=== PATIENT | female | born 1985 | race Caucasian/White ===

== ENCOUNTER 2019-03-14 16:49 | Emergency (ER) | payer OTHER, MEDICAID, SELFPAY ==
[2019-03-14] VITALS (10 sets, daily range): BP systolic 111–165; BP diastolic 71–116; PULSE 78–121; RESP 17–24; O2SAT 91–99
--- NOTE | 2019-03-14 17:07 | ED_ITS ---
HPI - Alcohol <Cynthia Arce PA-C - Last Filed: 03/14/19 21:02> General Chief Complaint: Toxicology Problem Stated Complaint: wants detox Time Seen by Provider: 03/14/19 17:00 Source: patient Mode of arrival: Ambulatory Limitations: no limitations History of Present Illness HPI narrative: This 34-year-old female comes to ED requesting referral for detox. She went to a treatment center or the crisis center today and was told she needed evaluation 1st, so came here. She states she has been an alcoholic since she was 10 years old. She drinks a L of vodka daily. Her last drink was in the parking lot here, she has been drinking as usual today. She denies any other drug use. She states that she has significant anxiety, does not take any daily medication for this, has occasionally taken Xanax in the past. She does have prescriptions for gabapentin and BuSpar that she is not using regularly. She states that she was told by her counselor she could possibly be bipolar at some point in the past. She states that currently is she is feeling as usual. She has not had any recent illness, no cough or respiratory symptoms. She denies any bowel or bladder symptoms. She has not had any chest pain or breathing difficulties. She states that she is not feeling shaky or nauseated. She denies any headache, hallucinations or other new complaints on systems review. She feels like she needs to be in an inpatient facility because at home she tends to drink. She has been given prescription for clonidine in the past to try to detox at home, has a partial bottle with her but this was not effective. She denies any suicidal ideation Related Data Home Medications Medication Instructions Recorded Confirmed buspirone 15 mg PO BID PRN 03/14/19 03/14/19 clonidine HCl 0.1 mg PO DAILY 03/14/19 03/14/19 gabapentin 300 mg PO TID 03/14/19 03/14/19 hydroxyzine HCl 50 mg PO TID PRN 03/14/19 03/14/19 Previous Rx's Medication Instructions Recorded lorazepam [Ativan] See Rx Instructions .ROUTE 03/15/19 .COMPLEX PRN #10 tab Allergies Allergy/AdvReac Type Severity Reaction Status Date / Time Penicillins Allergy Unknown Verified 03/14/19 18:03 Review of Systems <Cynthia Arce PA-C - Last Filed: 03/14/19 21:02> Review of Systems ROS Unobtainable: All systems reviewed & are unremarkable except as noted in HPI and below Patient History <Cynthia Arce PA-C - Last Filed: 03/14/19 21:02> Medical History (Updated 03/15/19 @ 04:29 by Jackie Alcaraz DO) Alcoholism /alcohol abuse (Chronic) Anxiety (Chronic) Surgical History (Updated 03/14/19 @ 17:18 by Cynthia Arce PA-C) History of fusion of spine for scoliosis (Resolved) Social History (Updated 03/14/19 @ 17:18 by Cynthia Arce PA-C) Smoking Status: Never smoker substance use type: does not use Smoking Status: Never smoker alcohol intake frequency: 3 or more drinks per day Alcohol type: hard liquor Exam <Cynthia Arce PA-C - Last Filed: 03/14/19 21:02> Narrative Exam Narrative: GENERAL APPEARANCE: Patient sitting comfortably, in no distress. HEENT: PERRL, EOMI, no scleral icterus NECK: Supple LUNGS: Clear to auscultation bilaterally. HEART: Rate and rhythm regular, normal S1 and S2, no S3 or S4. ABDOMEN: Soft, nontender, nondistended, bowel sounds present x 4 quadrants, no masses palpable, no hepatosplenomegaly. EXTREMITIES: No edema, no cyanosis DERMATOLOGIC: No jaundice or exanthem NEUROLOGIC: Alert and oriented with normal speech, gait and coordination. No tremor. PSYCH: Intermittently tearful and appears mildly anxious, not agitated Initial Vital Signs Initial Vital Signs: Vital Signs Pulse Rate 114 H 03/14/19 17:00 Respiratory Rate 22 03/14/19 17:00 Blood Pressure 165/104 H 03/14/19 17:00 Pulse Oximetry 99 03/14/19 17:00 <Jackie Alcaraz DO - Last Filed: 03/15/19 18:21> Initial Vital Signs Initial Vital Signs: Vital Signs Pulse Rate 114 H 03/14/19 17:00 Respiratory Rate 22 03/14/19 17:00 Blood Pressure 165/104 H 03/14/19 17:00 Pulse Oximetry 99 03/14/19 17:00 <Peter Marroquin MD - Last Filed: 03/15/19 09:35> Initial Vital Signs Initial Vital Signs: Vital Signs Pulse Rate 114 H 03/14/19 17:00 Respiratory Rate 22 03/14/19 17:00 Blood Pressure 165/104 H 03/14/19 17:00 Pulse Oximetry 99 03/14/19 17:00 Course <Cynthia Arce PA-C - Last Filed: 03/14/19 21:02> Course Additional Information: During her stay patient has repeatedly expressed wish to go to rehab. She does not want to return home as she is sure that she will resume drinking if she returns home. She feels that she needs to be in an inpatient setting. Social work has found beds available in the morning, and her alcohol level should be to an acceptable level for admission by then. She elects to remain here in the ED tonight for monitoring plan to enter rehab in the morning. She has been eating and drinking fluids while here, sleeping part of the time and appears comfortable. No evidence of onset of DTs at this time. Plan reviewed with Dr. Alcaraz who will continue care Orders Ordered: Discontinued Medications Magnesium Sulfate 2 gm/ Folic Acid 1 mg/ Thiamine HCl 100 mg / Multivitamins 10 ml/ Sodium Chloride 1,015.2 mls @ 125 mls/hr IV NOW ONE Stop: 03/15/19 02:01 Last Infusion: 03/15/19 06:22 Dose: 0 mls/hr Documented by: Admin: 03/14/19 18:18 Dose: 125 mls/hr Documented by: BALDO Lorazepam (Ativan) 1 mg PO NOW ONE Stop: 03/14/19 17:55 Last Admin: 03/14/19 18:04 Dose: 1 mg Documented by: BALDO Lorazepam (Ativan) 1 mg IV NOW ONE Stop: 03/14/19 21:23 Last Admin: 03/14/19 21:29 Dose: 1 mg Documented by: JACQUELINE Lorazepam (Ativan) 2 mg PO NOW ONE Stop: 03/15/19 03:56 Last Admin: 03/15/19 03:59 Dose: 2 mg Documented by: STACEY Lorazepam (Ativan) 1 mg PO NOW ONE Stop: 03/15/19 09:24 Last Admin: 03/15/19 09:39 Dose: 1 mg Documented by: KSCHERE Vital Signs Vital signs: Vital Signs - 8 hr 03/15/19 02:01 03/15/19 03:09 03/15/19 03:50 Pulse Rate 97 H 105 H 90 Respiratory Rate 19 17 15 Blood Pressure [Left Arm] 114/68 128/74 96/58 L Pulse Oximetry 92 96 99 03/15/19 05:21 03/15/19 07:00 03/15/19 08:43 Pulse Rate 83 95 H 97 H Respiratory Rate 18 18 23 Blood Pressure [Left Arm] 97/57 L 104/60 114/75 Pulse Oximetry 94 100 99 03/15/19 09:26 Pulse Rate 95 H Respiratory Rate 15 Blood Pressure [Left Arm] Pulse Oximetry 98 <Jackie Alcaraz DO - Last Filed: 03/15/19 18:21> Orders Ordered: Discontinued Medications Magnesium Sulfate 2 gm/ Folic Acid 1 mg/ Thiamine HCl 100 mg / Multivitamins 10 ml/ Sodium Chloride 1,015.2 mls @ 125 mls/hr IV NOW ONE Stop: 03/15/19 02:01 Last Infusion: 03/15/19 06:22 Dose: 0 mls/hr Documented by: Admin: 03/14/19 18:18 Dose: 125 mls/hr Documented by: BALDO Lorazepam (Ativan) 1 mg PO NOW ONE Stop: 03/14/19 17:55 Last Admin: 03/14/19 18:04 Dose: 1 mg Documented by: BALDO Lorazepam (Ativan) 1 mg IV NOW ONE Stop: 03/14/19 21:23 Last Admin: 03/14/19 21:29 Dose: 1 mg Documented by: JACQUELINE Lorazepam (Ativan) 2 mg PO NOW ONE Stop: 03/15/19 03:56 Last Admin: 03/15/19 03:59 Dose: 2 mg Documented by: STACEY Lorazepam (Ativan) 1 mg PO NOW ONE Stop: 03/15/19 09:24 Last Admin: 03/15/19 09:39 Dose: 1 mg Documented by: ELLIE Vital Signs Vital signs: Vital Signs - 8 hr 03/15/19 02:01 03/15/19 03:09 03/15/19 03:50 Pulse Rate 97 H 105 H 90 Respiratory Rate 19 17 15 Blood Pressure [Left Arm] 114/68 128/74 96/58 L Pulse Oximetry 92 96 99 12/07/19 05:21 03/15/19 07:00 03/15/19 08:43 Pulse Rate 83 95 H 97 H Respiratory Rate 18 18 23 Blood Pressure [Left Arm] 97/57 L 104/60 114/75 Pulse Oximetry 94 100 99 03/15/19 09:26 Pulse Rate 95 H Respiratory Rate 15 Blood Pressure [Left Arm] Pulse Oximetry 98 <Peter Marroquin MD - Last Filed: 03/15/19 09:35> Course Course Narrative: Addendum by Peter Marroquin MD at 9:34 a.m. on 03/15/2019 I assumed care of this patient from Dr. Alcaraz, briefly 34-year-old female pre senting with alcohol withdrawal requesting detox. She was accepted for detox at [facility] I re-evaluated her vital signs are stable she is feeling well and she would like to be transferred there in a private vehicle, she appears stable to do so. I did write an Ativan taper as requested by the detox facility. I reviewed return precautions with the patient, and reviewed that she should go directly to the detox center which she is in agreement with. She was discharged in the care of her partner directly to the detox center. Orders Ordered: Discontinued Medications Magnesium Sulfate 2 gm/ Folic Acid 1 mg/ Thiamine HCl 100 mg / Multivitamins 10 ml/ Sodium Chloride 1,015.2 mls @ 125 mls/hr IV NOW ONE Stop: 03/15/19 02:01 Last Infusion: 03/15/19 06:22 Dose: 0 mls/hr Documented by: Admin: 03/14/19 18:18 Dose: 125 mls/hr Documented by: BALDO Lorazepam (Ativan) 1 mg PO NOW ONE Stop: 03/14/19 17:55 Last Admin: 03/14/19 18:04 Dose: 1 mg Documented by: BALDO Lorazepam (Ativan) 1 mg IV NOW ONE Stop: 03/14/19 21:23 Last Admin: 03/14/19 21:29 Dose: 1 mg Documented by: JACQUELINE Lorazepam (Ativan) 2 mg PO NOW ONE Stop: 03/15/19 03:56 Last Admin: 03/15/19 03:59 Dose: 2 mg Documented by: STACEY Lorazepam (Ativan) 1 mg PO NOW ONE Stop: 03/15/19 09:24 Last Admin: 03/15/19 09:39 Dose: 1 mg Documented by: ELLIE Vital Signs Vital signs: Vital Signs - 8 hr 03/15/19 02:01 03/15/19 03:09 03/15/19 03:50 Pulse Rate 97 H 105 H 90 Respiratory Rate 19 17 15 Blood Pressure [Left Arm] 114/68 128/74 96/58 L Pulse Oximetry 92 96 99 03/15/19 05:21 03/15/19 07:00 03/15/19 08:43 Pulse Rate 83 95 H 97 H Respiratory Rate 18 18 23 Blood Pressure [Left Arm] 97/57 L 104/60 114/75 Pulse Oximetry 94 100 99 03/15/19 09:26 Pulse Rate 95 H Respiratory Rate 15 Blood Pressure [Left Arm] Pulse Oximetry 98 MDM - Alcohol <Cynthia Arce PA-C - Last Filed: 03/14/19 21:02> Lab Data Result diagrams: 03/14/19 17:43 03/14/19 17:43 Labs: Lab Results 03/14/19 03/14/19 03/14/19 Range/Units 17:36 17:43 17:43 WBC 6.2 (4.5-11.0) X10^3/uL RBC 4.58 (4.0-5.2) X10^6/uL Hgb 14.7 (12.0-16.0) g/dL Hct 43.3 (36-46) % MCV 94.5 (80-100) fL MCH 32.1 (26-34) PG MCHC 34.0 (30-36) % RDW 14.3 (11.6-14.8) % Plt Count 248 (150-400) X10^3/uL Neut % (Auto) 57.3 (50-75) % Lymph % (Auto) 31.6 (25-40) % [place] % (Auto) 7.0 (3-14) % Eos % (Auto) 1.5 L (2-4) % Baso % (Auto) 2.6 H (0-2) % Neut # (Auto) 3500 (9305-9598) /uL Lymph # (Auto) 1900 (3432-0048) /uL [place] # (Auto) 400 (0-900) /uL Eos # (Auto) 100 (0-450) /uL Baso # (Auto) 200 H (0-100) /uL Sodium 148 H (137-145) mmol/L Potassium 4.2 (3.4-5.1) mmol/L Chloride 106 (98-107) mmol/L Carbon Dioxide 25 (22-32) mmol/L BUN 11 (7-17) mg/dL Creatinine 0.60 (0.52-1.04) mg/dL Estimated GFR > 60.0 (>60) mL/min BUN/Creatinine Ratio 18.3 (6-22) Glucose 95 (70-100) mg/dL Calcium 9.1 (8.4-10.2) mg/dL Magnesium 2.0 (1.6-2.3) mg/dL Total Bilirubin 0.8 (0.2-1.3) mg/dL AST 160 H (14-36) IU/L ALT 97 H (<35) IU/L Alkaline Phosphatase 93 (38-126) U/L Total Protein 8.6 H (6.3-8.2) g/dL Albumin 5.1 H (3.5-5.0) g/dL Globulin 3.5 (1.7-4.1) g/dL Albumin/Globulin Ratio 1.5 (1.0-2.8) Lipase 214 (23-300) U/L TSH (0.47-4.68) uIU/mL U Morph 300 ng/mL cutoff Negative (Negative) Ur Oxycodone Screen Negative (Negative) Urine Methadone Screen Negative (Negative) Ur Barbiturates Screen Negative (Negative) U Tricyclic Antidepress Negative (Negative) Ur Phencyclidine Scrn Negative (Negative) Ur Amphetamines Screen Negative (Negative) U Methamphetamines Scrn Negative (Negative) Ur MDMA Scrn (Ecstasy) Negative (Negative) U Benzodiazepines Scrn Negative (Negative) Urine Cocaine Screen Negative (Negative) U Marijuana (THC) Screen Negative (Negative) Ethyl Alcohol 408 H* ( - 10) mg/dL 03/14/19 03/15/19 Range/Units 17:43 03:08 WBC (4.5-11.0) X10^3/uL RBC (4.0-5.2) X10^6/uL Hgb (12.0-16.0) g/dL Hct (36-46) % MCV (80-100) fL MCH (26-34) PG MCHC (30-36) % RDW (11.6-14.8) % Plt Count (150-400) X10^3/uL Neut % (Auto) (50-75) % Lymph % (Auto) (25-40) % [place] % (Auto) (3-14) % Eos % (Auto) (2-4) % Baso % (Auto) (0-2) % Neut # (Auto) (1762-3890) /uL Lymph # (Auto) (7418-1777) /uL [place] # (Auto) (0-900) /uL Eos # (Auto) (0-450) /uL Baso # (Auto) (0-100) /uL Sodium (137-145) mmol/L Potassium (3.4-5.1) mmol/L Chloride (98-107) mmol/L Carbon Dioxide (22-32) mmol/L BUN (7-17) mg/dL Creatinine (0.52-1.04) mg/dL Estimated GFR (>60) mL/min BUN/Creatinine Ratio (6-22) Glucose (70-100) mg/dL Calcium (8.4-10.2) mg/dL Magnesium (1.6-2.3) mg/dL Total Bilirubin (0.2-1.3) mg/dL AST (14-36) IU/L ALT (<35) IU/L Alkaline Phosphatase (38-126) U/L Total Protein (6.3-8.2) g/dL Albumin (3.5-5.0) g/dL Globulin (1.7-4.1) g/dL Albumin/Globulin Ratio (1.0-2.8) Lipase (23-300) U/L TSH 0.55 (0.47-4.68) uIU/mL U Morph 300 ng/mL cutoff (Negative) Ur Oxycodone Screen (Negative) Urine Methadone Screen (Negative) Ur Barbiturates Screen (Negative) U Tricyclic Antidepress (Negative) Ur Phencyclidine Scrn (Negative) Ur Amphetamines Screen (Negative) U Methamphetamines Scrn (Negative) Ur MDMA Scrn (Ecstasy) (Negative) U Benzodiazepines Scrn (Negative) Urine Cocaine Screen (Negative) U Marijuana (THC) Screen (Negative) Ethyl Alcohol 115 H ( - 10) mg/dL Point of Care Testing Test Results Negative Urine Dip Bedside Urine Glucose Negative Bedside Urine Bilirubin - Negative Bedside Urine Ketone - Negative Urine Specific [place] 1.015 Bedside Urine Occult Blood +/- Bedside Urine pH 6.0 Bedside Urine Protein - Negative Bedside Urine Urobilinogen - Negative Bedside Urine Nitrite - Negative Bedside Urine Leukocytes - Negative Esterase <Jackie Alcaraz, DO - Last Filed: 03/15/19 18:21> Lab Data Attestation: I reviewed the patient's lab results. Labs: Lab Results 03/14/19 03/14/19 03/14/19 Range/Units 17:36 17:43 17:43 WBC 6.2 (4.5-11.0) X10^3/uL RBC 4.58 (4.0-5.2) X10^6/uL Hgb 14.7 (12.0-16.0) g/dL Hct 43.3 (36-46) % MCV 94.5 (80-100) fL MCH 32.1 (26-34) PG MCHC 34.0 (30-36) % RDW 14.3 (11.6-14.8) % Plt Count 248 (150-400) X10^3/uL Neut % (Auto) 57.3 (50-75) % Lymph % (Auto) 31.6 (25-40) % [place] % (Auto) 7.0 (3-14) % Eos % (Auto) 1.5 L (2-4) % Baso % (Auto) 2.6 H (0-2) % Neut # (Auto) 3500 (0980-2781) /uL Lymph # (Auto) 1900 (8874-5324) /uL [place] # (Auto) 400 (0-900) /uL Eos # (Auto) 100 (0-450) /uL Baso # (Auto) 200 H (0-100) /uL Sodium 148 H (137-145) mmol/L Potassium 4.2 (3.4-5.1) mmol/L Chloride 106 (98-107) mmol/L Carbon Dioxide 25 (22-32) mmol/L BUN 11 (7-17) mg/dL Creatinine 0.60 (0.52-1.04) mg/dL Estimated GFR > 60.0 (>60) mL/min BUN/Creatinine Ratio 18.3 (6-22) Glucose 95 (70-100) mg/dL Calcium 9.1 (8.4-10.2) mg/dL Magnesium 2.0 (1.6-2.3) mg/dL Total Bilirubin 0.8 (0.2-1.3) mg/dL AST 160 H (14-36) IU/L ALT 97 H (<35) IU/L Alkaline Phosphatase 93 (38-126) U/L Total Protein 8.6 H (6.3-8.2) g/dL Albumin 5.1 H (3.5-5.0) g/dL Globulin 3.5 (1.7-4.1) g/dL Albumin/Globulin Ratio 1.5 (1.0-2.8) Lipase 214 (23-300) U/L TSH (0.47-4.68) uIU/mL U Morph 300 ng/mL cutoff Negative (Negative) Ur Oxycodone Screen Negative (Negative) Urine Methadone Screen Negative (Negative) Ur Barbiturates Screen Negative (Negative) U Tricyclic Antidepress Negative (Negative) Ur Phencyclidine Scrn Negative (Negative) Ur Amphetamines Screen Negative (Negative) U Methamphetamines Scrn Negative (Negative) Ur MDMA Scrn (Ecstasy) Negative (Negative) U Benzodiazepines Scrn Negative (Negative) Urine Cocaine Screen Negative (Negative) U Marijuana (THC) Screen Negative (Negative) Ethyl Alcohol 408 H* ( - 10) mg/dL 03/14/19 03/15/19 Range/Units 17:43 03:08 WBC (4.5-11.0) X10^3/uL RBC (4.0-5.2) X10^6/uL Hgb (12.0-16.0) g/dL Hct (36-46) % MCV (80-100) fL MCH (26-34) PG MCHC (30-36) % RDW (11.6-14.8) % Plt Count (150-400) X10^3/uL Neut % (Auto) (50-75) % Lymph % (Auto) (25-40) % [place] % (Auto) (3-14) % Eos % (Auto) (2-4) % Baso % (Auto) (0-2) % Neut # (Auto) (9339-0890) /uL Lymph # (Auto) (2651-1557) /uL [place] # (Auto) (0-900) /uL Eos # (Auto) (0-450) /uL Baso # (Auto) (0-100) /uL Sodium (137-145) mmol/L Potassium (3.4-5.1) mmol/L Chloride (98-107) mmol/L Carbon Dioxide (22-32) mmol/L BUN (7-17) mg/dL Creatinine (0.52-1.04) mg/dL Estimated GFR (>60) mL/min BUN/Creatinine Ratio (6-22) Glucose (70-100) mg/dL Calcium (8.4-10.2) mg/dL Magnesium (1.6-2.3) mg/dL Total Bilirubin (0.2-1.3) mg/dL AST (14-36) IU/L ALT (<35) IU/L Alkaline Phosphatase (38-126) U/L Total Protein (6.3-8.2) g/dL Albumin (3.5-5.0) g/dL Globulin (1.7-4.1) g/dL Albumin/Globulin Ratio (1.0-2.8) Lipase (23-300) U/L TSH 0.55 (0.47-4.68) uIU/mL U Morph 300 ng/mL cutoff (Negative) Ur Oxycodone Screen (Negative) Urine Methadone Screen (Negative) Ur Barbiturates Screen (Negative) U Tricyclic Antidepress (Negative) Ur Phencyclidine Scrn (Negative) Ur Amphetamines Screen (Negative) U Methamphetamines Scrn (Negative) Ur MDMA Scrn (Ecstasy) (Negative) U Benzodiazepines Scrn (Negative) Urine Cocaine Screen (Negative) U Marijuana (THC) Screen (Negative) Ethyl Alcohol 115 H ( - 10) mg/dL Point of Care Testing Test Results Negative Urine Dip Bedside Urine Glucose Negative Bedside Urine Bilirubin - Negative Bedside Urine Ketone - Negative Urine Specific [place] 1.015 Bedside Urine Occult Blood +/- Bedside Urine pH 6.0 Bedside Urine Protein - Negative Bedside Urine Urobilinogen - Negative Bedside Urine Nitrite - Negative Bedside Urine Leukocytes - Negative Esterase MDM Narrative Medical decision making narrative: Patient continues to express interest in detox, no beds are available until after 730 in the morning although detox in [place] and [place] stated they both should have at least 1 bed available after 7:30 a.m.. Patient's EtOH has to be less than 225. Patient was offered discharge and call in the morning but she asked if she can spend the night in order to maintain medical clearance. Overnight heart rate has occasionally been up to the 90s. She has had Ativan IV and switched to p.o. meds, patient states her DTs are typically tremors, nausea and vomiting, she denies any history of hallucinations or seizures. She did take her home trazodone for sleep. Patient is aware that if there are no beds available this morning that she will be discharged home but given contact information for her to continue to tap contact detox centers. Patient CIWA 4 @ 0630 and was 12 early in her stay. Patient was signed out to Dr. Marroquin. <Peter Marroquin MD - Last Filed: 03/15/19 09:35> Lab Data Labs: Lab Results 03/14/19 03/14/19 03/14/19 Range/Units 17:36 17:43 17:43 WBC 6.2 (4.5-11.0) X10^3/uL RBC 4.58 (4.0-5.2) X10^6/uL Hgb 14.7 (12.0-16.0) g/dL Hct 43.3 (36-46) % MCV 94.5 (80-100) fL MCH 32.1 (26-34) PG MCHC 34.0 (30-36) % RDW 14.3 (11.6-14.8) % Plt Count 248 (150-400) X10^3/uL Neut % (Auto) 57.3 (50-75) % Lymph % (Auto) 31.6 (25-40) % [place] % (Auto) 7.0 (3-14) % Eos % (Auto) 1.5 L (2-4) % Baso % (Auto) 2.6 H (0-2) % Neut # (Auto) 3500 (2253-8262) /uL Lymph # (Auto) 1900 (9359-9789) /uL [place] # (Auto) 400 (0-900) /uL Eos # (Auto) 100 (0-450) /uL Baso # (Auto) 200 H (0-100) /uL Sodium 148 H (137-145) mmol/L Potassium 4.2 (3.4-5.1) mmol/L Chloride 106 (98-107) mmol/L Carbon Dioxide 25 (22-32) mmol/L BUN 11 (7-17) mg/dL Creatinine 0.60 (0.52-1.04) mg/dL Estimated GFR > 60.0 (>60) mL/min BUN/Creatinine Ratio 18.3 (6-22) Glucose 95 (70-100) mg/dL Calcium 9.1 (8.4-10.2) mg/dL Magnesium 2.0 (1.6-2.3) mg/dL Total Bilirubin 0.8 (0.2-1.3) mg/dL AST 160 H (14-36) IU/L ALT 97 H (<35) IU/L Alkaline Phosphatase 93 (38-126) U/L Total Protein 8.6 H (6.3-8.2) g/dL Albumin 5.1 H (3.5-5.0) g/dL Globulin 3.5 (1.7-4.1) g/dL Albumin/Globulin Ratio 1.5 (1.0-2.8) Lipase 214 (23-300) U/L TSH (0.47-4.68) uIU/mL U Morph 300 ng/mL cutoff Negative (Negative) Ur Oxycodone Screen Negative (Negative) Urine Methadone Screen Negative (Negative) Ur Barbiturates Screen Negative (Negative) U Tricyclic Antidepress Negative (Negative) Ur Phencyclidine Scrn Negative (Negative) Ur Amphetamines Screen Negative (Negative) U Methamphetamines Scrn Negative (Negative) Ur MDMA Scrn (Ecstasy) Negative (Negative) U Benzodiazepines Scrn Negative (Negative) Urine Cocaine Screen Negative (Negative) U Marijuana (THC) Screen Negative (Negative) Ethyl Alcohol 408 H* ( - 10) mg/dL 03/14/19 03/15/19 Range/Units 17:43 03:08 WBC (4.5-11.0) X10^3/uL RBC (4.0-5.2) X10^6/uL Hgb (12.0-16.0) g/dL Hct (36-46) % MCV (80-100) fL MCH (26-34) PG MCHC (30-36) % RDW (11.6-14.8) % Plt Count (150-400) X10^3/uL Neut % (Auto) (50-75) % Lymph % (Auto) (25-40) % [place] % (Auto) (3-14) % Eos % (Auto) (2-4) % Baso % (Auto) (0-2) % Neut # (Auto) (4522-3400) /uL Lymph # (Auto) (1701-7572) /uL [place] # (Auto) (0-900) /uL Eos # (Auto) (0-450) /uL Baso # (Auto) (0-100) /uL Sodium (137-145) mmol/L Potassium (3.4-5.1) mmol/L Chloride (98-107) mmol/L Carbon Dioxide (22-32) mmol/L BUN (7-17) mg/dL Creatinine (0.52-1.04) mg/dL Estimated GFR (>60) mL/min BUN/Creatinine Ratio (6-22) Glucose (70-100) mg/dL Calcium (8.4-10.2) mg/dL Magnesium (1.6-2.3) mg/dL Total Bilirubin (0.2-1.3) mg/dL AST (14-36) IU/L ALT (<35) IU/L Alkaline Phosphatase (38-126) U/L Total Protein (6.3-8.2) g/dL Albumin (3.5-5.0) g/dL Globulin (1.7-4.1) g/dL Albumin/Globulin Ratio (1.0-2.8) Lipase (23-300) U/L TSH 0.55 (0.47-4.68) uIU/mL U Morph 300 ng/mL cutoff (Negative) Ur Oxycodone Screen (Negative) Urine Methadone Screen (Negative) Ur Barbiturates Screen (Negative) U Tricyclic Antidepress (Negative) Ur Phencyclidine Scrn (Negative) Ur Amphetamines Screen (Negative) U Methamphetamines Scrn (Negative) Ur MDMA Scrn (Ecstasy) (Negative) U Benzodiazepines Scrn (Negative) Urine Cocaine Screen (Negative) U Marijuana (THC) Screen (Negative) Ethyl Alcohol 115 H ( - 10) mg/dL Point of Care Testing Test Results Negative Urine Dip Bedside Urine Glucose Negative Bedside Urine Bilirubin - Negative Bedside Urine Ketone - Negative Urine Specific [place] 1.015 Bedside Urine Occult Blood +/- Bedside Urine pH 6.0 Bedside Urine Protein - Negative Bedside Urine Urobilinogen - Negative Bedside Urine Nitrite - Negative Bedside Urine Leukocytes - Negative Esterase Discharge Plan Departure Patient Disposition: Home Clinical Impression: Alcoholism /alcohol abuse Discharge Date/Time: 03/15/19 10:06 Instructions: DI for Alcohol Abuse Activity Restrictions/Additional Instructions: Go directly to [facility] ([phone]) Go directly to the crisis/detox center. Take the prescribed medications for your symptoms. Medications will be dispensed by the staff there. If you leave the Center you CANNOT take the extra medication home with you. If you're feeling suicidal or having suicidal thoughts, contact the suicide hotline: . Prescriptions: New lorazepam [Ativan] 2 mg tablet See Rx Instructions .ROUTE .COMPLEX PRN (Reason: alcohol withdrawal) Qty: 10 RF: 0 No Action clonidine HCl 0.1 mg tablet 0.1 mg PO DAILY RF: 0 gabapentin 300 mg capsule 300 mg PO TID RF: 0 hydroxyzine HCl 25 mg Tablet 50 mg PO TID PRN (Reason: Anxiety) RF: 0 buspirone 15 mg Tablet 15 mg PO BID PRN (Reason: Anxiety) RF: 0 ED Sign-out <Cynthia Arce PA-C - Last Filed: 03/14/19 21:02> Sign Out Provider Sign Out Attestation: See course, patient currently comfortable, signed out to Dr. Alcaraz at 2100
[2019-03-14 17:41] LABS: UR Morphine/Opiate cutoff 300 Negative (Negative); Ur Creatinine Normal (Normal); Ur Specific Gravity Normal (Normal); Urine Amphetamines Negative (Negative); Urine Barbiturates Negative (Negative); Urine Benzodiazepines Negative (Negative); Urine Cocaine Negative (Negative); Urine MDMA Negative (Negative); Urine Methadone Negative (Negative); Urine Methamphetamines Negative (Negative); Urine Oxycodone Negative (Negative); Urine Phencyclidine Negative (Negative); Urine Tetrahydrocannabinol Negative (Negative); Urine Tricyclic Antidepressant Negative (Negative); Urine pH Normal (Normal)
[2019-03-14 17:59] LABS: Add Manual Diff / Slide Review NO; Basophils Absolute Auto 200 /uL (0-100); Basophils Percent Auto 2.6 % (0-2); Eosinophils Absolute Auto 100 /uL (0-450); Eosinophils Percent Auto 1.5 % (2-4); Hematocrit 43.3 % (36-46); Hemoglobin 14.7 g/dL (12.0-16.0); Lymphocytes Absolute Auto 1900 /uL (1100-4500); Lymphocytes Percent Auto 31.6 % (25-40); Mean Corpuscular Hemoglobin 32.1 PG (26-34); Mean Corpuscular Volume 94.5 fL (80-100); Monocytes Absolute Auto 400 /uL (0-900); Neutrophils Absolute Auto 3500 /uL (1500-7000); Neutrophils Percent Auto 57.3 % (50-75); Platelet Count 248 X10^3/uL (150-400); Red Blood Cell Count 4.58 X10^6/uL (4.0-5.2); Red Cell Distribution Width 14.3 % (11.6-14.8); White Blood Cell Count 6.2 X10^3/uL (4.5-11.0)
[2019-03-14] MEDS: LORazepam 0.5 MG TABLET 1 MG PO (18:04)
[2019-03-14] MEDS: MAGNESIUM SULFATE 2 GM, FOLIC ACID 1 MG, THIAMINE 100 MG, MULTIVITAMIN 10 ML in SODIUM ... IV (18:18)
[2019-03-14 18:20] LABS: Alanine Aminotransferase 97 IU/L (<35); Albumin 5.1 g/dL (3.5-5.0); Albumin Globulin Ratio 1.5 (1.0-2.8); Alkaline Phosphatase 93 U/L (38-126); Aspartate Aminotransferase 160 IU/L (14-36); BUN Creatinine Ratio 18.3 (6-22); Bilirubin Total 0.8 mg/dL (0.2-1.3); Blood Urea Nitrogen 11 mg/dL (7-17); Calcium 9.1 mg/dL (8.4-10.2); Carbon Dioxide 25 mmol/L (22-32); Chloride 106 mmol/L (98-107); Estimated Glomerular Filt Rate > 60.0 mL/min (>60); Globulin 3.5 g/dL (1.7-4.1); Glucose 95 mg/dL (70-100); HEMOLYSIS < 15 (0-50); Lipase 214 U/L (23-300); Potassium 4.2 mmol/L (3.4-5.1); Sodium 148 mmol/L (137-145); Total Protein 8.6 g/dL (6.3-8.2)
[2019-03-14 18:29] LABS: Ethanol (ETOH) 408 mg/dL
[2019-03-14 18:53] LABS: Thyroid Stimulating Hormone 0.55 uIU/mL (0.47-4.68)
--- NOTE | 2019-03-14 19:05 | CM.SWNOTE ---
Discharge Planning/Care Management SALES COMMUNICATIONS MANAGER - Family Services Assistant Assessment Start: 03/14/19 18:14 Freq: Status: Active Protocol: Document 03/14/19 18:15 DPL (Rec: 03/14/19 19:05 DPL [id number]) SALES COMMUNICATIONS MANAGER/Family Services Assistant Assessment Start date 03/14/19 Visit Start Time 05:10 End date 03/14/19 Visit End Time 08:30 Total time Care Management spent on 200 minutes patient visit-in minutes Presenting Problem Pt presents to the ED expressing wanting voluntary detox assistance. She reports having been drinking all day, and consistently drinks approx. 1-liter of vodka per day. She declines any other substance use. Last drink was in the parking lot. Precipitating Event(s) Pt states that she moved to [place] not long ago from [facility], is extremely unhappy here, is depressed most of the time. She feels that she may be bi- polar, because my mom thinks so. Boyfriend arrived about an hour later, pt states that he is an active heroin addict. Current Behavioral Health Provider(s) N/A Include Facility, Provider, Ph. # Psych. Hx Mental Health and Chemical Pt self reports a lifelong hx Dependency of depression, she describes herself as having periods of miladis, however this has not been offically evaluated by a medical or mental health professional. Family Hx of Behavioral Abuse N/A Psychiatric Hospitalizations (date(s)/ N/A location) Support System(s) Pt states that she has a supportive family in [place], and that her only support person here in [place] is her boyfriend. School/Work Pt is currently working as a hairdresser, however she feels that she's probably going to lose her job due to her alcoholism. Presenting Problem Pt reports as having been drinking alcohol since the age of [age]. She feels that her daily use has progressed to the point where she is now incapable of stopping without detox and treatment. The last time she was medically detoxed was in December of this year . Precipitating Event(s) No specific event, she states that she feels that she will if she continues to drink. Current Behavioral Health Provider(s) Pt does have clonadine Include Facility, Provider, Ph. # prescribed for anxiety, however she was not cognitively intact enough to provide for an accurate history. Family Hx of Behavioral Abuse Yes, pt's father was also an alcoholic. History of Withdrawal? Seizures? Yes, pt experiences tremors, inability to maintain consistent sense of being hot/ cold, feels overall malaise. Longest Period of Sobriety She was unable to report a period of sobriety, states having been drinking every day for most of her life. Psychosocial Information Pt moved to [place] a few months ago with her boyfriend, his parents live in [place]. She feels isolated and unhappy in [place], feels stuck here and drinks to palliate her depression. Support System(s) Boyfriend, family in [place]. Legal Matters - Outstanding Issues Not known. Orientation (Person/Place/Time) Pt is oriented, however she is cognitively compromised and unable to track/remember conversations with staff in the ED. Blood alcohol level is 408 as of 18:45PM. Affect Tearful, cooperative. Thought Content - Specify/Describe Thought content becoming more Obsessions, Delusions, Hallucinations disorganized the longer she is here in ED. Detox symptoms were not immediately present, began to increase consistently throughout visit. Thought Processes (Htckkxx-Rmtdkvcp-Dekb Goal directed, vacillates Bhrauevg-Trnocldt-Kqlsntqpxp- between appropriate and Muxyyfuxrupdte-Oqugbuu-Lqcorfympvcj- incongruent. Thought Blocking) Speech (Zdalla-Myit-Rvnjkjm-Rapid-Soft- Normal Loud-Pressured) Motor (Gexmzf-Zoxcjosqb-Vqhb-Other) Agitated Insight (Present-Partially Present- Impaired Impaired) Judgement (Intact-Impaired) Impaired Impulse Control (Adequate-Impaired) Impaired Memory (Rzpeyjmvx-Aimiiz-Cafovl, Impaired Impaired-Intact) Concentration (Intact-Impaired) Impaired Attention (Intact-Impaired) Impaired Behavior (Appropriate-Inappropriate) Appropriate Suicidal Ideation (Plan) No Homicidal Ideation (Plan) No Intervention Substance abuse and risk assessment. Counseling to support coping and validation for seeking assistance/ treatment. RA Plan Pt is wanting detox placement. SALES COMMUNICATIONS MANAGER in process of finding available options.
--- NOTE | 2019-03-14 19:36 | CM.SWNOTE ---
Description: Detox Placement Due to pt's need to detox down to a 225 blood alcohol level or lower, she will remain in the ER overnight until she is medically cleared. As early as 8:00am, there will be beds available at [facility] in [place], as well as [facility] in [place]. She is advised to call and do her phone screening at that time. See below the contact info for both: [facility] [place]: [facility] in [place]:
--- NOTE | 2019-03-14 21:23 | PC.NURSE ---
As I was helping the patient back into bed after going to the bathroom she stated that she was very scared, and didn't know how to explain it. She said that she was feeling very anxious and that her mother thinks shes bipolar. She stated that she felt like she was letting everyone down and she didn't know how to make it better. She requested something to help her sleep. DR Alcaraz is aware and will go speak to her.
[2019-03-14] MEDS: LORazepam 2 MG/ML INJ 1 MG IV (21:29)
[2019-03-15] VITALS (9 sets, daily range): BP systolic 96–128; BP diastolic 57–84; PULSE 83–105; RESP 15–24; O2SAT 92–100
[2019-03-15 03:24] LABS: Ethanol (ETOH) 115 mg/dL
[2019-03-15] MEDS: LORazepam 0.5 MG TABLET 2 MG PO (03:59)
--- NOTE | 2019-03-15 08:44 | PC.NURSE ---
Woke patient up for breakfast tray and to use the bathroom. I talked with Nia from care management and we discussed working on getting the patient a detox bed. Patient had a phone screening with Peter from [facility] and the nurse over there has her paperwork to look over.
--- NOTE | 2019-03-15 09:32 | PC.NURSE ---
pt ate her breakfast tray.
[2019-03-15] MEDS: LORazepam 0.5 MG TABLET 1 MG PO (09:39)
--- NOTE | 2019-03-15 12:24 | CM.SWNOTE ---
VIDEOTAPE EDITOR Note Reviewed chart and spoke w/Marco A in ED, he was placing calls to [facility] and [facility], [place] did not have a female bed but [place] did. Introduced self and role and Ebonie this morning and she was appreciative for assist in securing detox bed. According to Marco A, Ebonie was connected w/RN from [facility] and she had been accepting for detox there today. When this VIDEOTAPE EDITOR returned to desk for chart review, Ebonie had left and notes indicate she left w/partner w/the plan to go straight to [facility]. BEBE Singh
== END 2019-03-15 10:06 | disposition home or self-care (01) ==
PROVIDERS: Internal Medicine; Emergency Provider Emergency Medicine
DX: F10.10 Alcohol abuse, uncomplicated (principal); F41.9 Anxiety disorder, unspecified
CPT/HCPCS: 36415; 80053; 80305; 80320; 81003; 81025; 83690; 83735; 84443; 85025; 96361; 96374; 99284; 99285; J2060; J3475

== ENCOUNTER 2019-04-30 19:33 | Emergency (ER) | payer OTHER, MEDICAID, SELFPAY ==
[2019-04-30 19:59] VITALS: BP 157/110; PULSE 110; RESP 21; TEMP 36.3; O2SAT 95
[2019-04-30 20:37] VITALS: BP 119/78; PULSE 100; RESP 24; O2SAT 93
[2019-04-30 21:09] LABS: Add Manual Diff / Slide Review NO; Basophils Absolute Auto 0 /uL (0-100); Basophils Percent Auto 0.7 % (0-2); Eosinophils Absolute Auto 100 /uL (0-450); Eosinophils Percent Auto 0.7 % (2-4); Hematocrit 44.5 % (36-46); Hemoglobin 15.6 g/dL (12.0-16.0); Lymphocytes Absolute Auto 2400 /uL (1100-4500); Lymphocytes Percent Auto 32.4 % (25-40); Mean Corpuscular HGB Conc 35.1 % (30-36); Mean Corpuscular Hemoglobin 32.4 PG (26-34); Mean Corpuscular Volume 92.1 fL (80-100); Monocytes Absolute Auto 500 /uL (0-900); Monocytes Percent Auto 7.2 % (3-14); Neutrophils Absolute Auto 4400 /uL (1500-7000); Platelet Count 317 X10^3/uL (150-400); Red Blood Cell Count 4.83 X10^6/uL (4.0-5.2); Red Cell Distribution Width 13.8 % (11.6-14.8); White Blood Cell Count 7.4 X10^3/uL (4.5-11.0)
[2019-04-30 21:20] LABS: Alanine Aminotransferase 55 IU/L (<35); Albumin 4.5 g/dL (3.5-5.0); Albumin Globulin Ratio 1.3 (1.0-2.8); Alkaline Phosphatase 96 U/L (38-126); Aspartate Aminotransferase 73 IU/L (14-36); Bilirubin Unconjugated 0.9 mg/dL (0.0-1.1); Blood Urea Nitrogen 14 mg/dL (7-17); Calcium 8.7 mg/dL (8.4-10.2); Carbon Dioxide 29 mmol/L (22-32); Chloride 102 mmol/L (98-107); Estimated Glomerular Filt Rate > 60.0 mL/min (>60); Globulin 3.4 g/dL (1.7-4.1); Glucose 91 mg/dL (70-100); HEMOLYSIS < 15 (0-50); Lipase 176 U/L (23-300); Sodium 144 mmol/L (137-145); Total Protein 7.9 g/dL (6.3-8.2)
[2019-04-30 21:31] LABS: Ethanol (ETOH) 415 mg/dL
[2019-04-30 21:37] LABS: UR Morphine/Opiate cutoff 300 Negative (Negative); Ur Creatinine Normal (Normal); Ur Specific Gravity Normal (Normal); Urine Amphetamines Negative (Negative); Urine Barbiturates Negative (Negative); Urine Benzodiazepines Negative (Negative); Urine Cocaine Negative (Negative); Urine MDMA Negative (Negative); Urine Methadone Negative (Negative); Urine Methamphetamines Negative (Negative); Urine Oxycodone Negative (Negative); Urine Phencyclidine Negative (Negative); Urine Tetrahydrocannabinol Negative (Negative); Urine Tricyclic Antidepressant Negative (Negative); Urine pH Normal (Normal)
--- NOTE | 2019-04-30 21:45 | ED_ITS ---
HPI - Alcohol <Jacike Mora, COMMERCIAL CREDIT SPECIALIST-BC - Last Filed: 04/30/19 22:00> General Chief Complaint: Toxicology Problem Stated Complaint: alcohol detox Time Seen by Provider: 04/30/19 20:34 Source: patient Mode of arrival: Ambulatory Limitations: no limitations History of Present Illness HPI narrative: The patient is a 34-year-old female current smoker with history of alcoholism who presents for chief complaint of wanting alcohol detox. She states she drinks about a 5th of vodka a day last drink was in the parking lot just prior to arrival to the emergency department. She is currently requesting alcohol during my exam. She states she does not feel any detox symptoms at this point, but would like to go to detox. She states she wants to go to detox because her boyfriend wants her to go to detox. She is also motivated by her new kitten. She denies any nausea or vomiting, but complains of anxiety. She states she started drinking at the age of 10, and states she was alcohol by age 13. She states she has been to detox before, and would like to go back. She called [facility] detox and they stated she needed to come to the emergency department 1st. She states her mother has told her that she is bipolar. She denies any thoughts of hurting herself or anybody else. Denies any cough or respiratory symptoms, bladder or bowel issues, abdominal pain headache hallucinations or any other new complaints. She repeatedly request for alcohol during my interview. She denies any history of detox related seizures, but does state that she has history of a TBI. Previous prescriptions include BuSpar, gabapentin and Xanax. She states that her primary care provider is Dr. Blanco. Related Data Home Medications Medication Instructions Recorded Confirmed buspirone 15 mg PO BID PRN 03/14/19 03/14/19 clonidine HCl 0.1 mg PO DAILY 03/14/19 03/14/19 gabapentin 300 mg PO TID 03/14/19 03/14/19 hydroxyzine HCl 50 mg PO TID PRN 03/14/19 03/14/19 Previous Rx's Medication Instructions Recorded lorazepam [Ativan] See Rx Instructions .ROUTE 03/15/19 .COMPLEX PRN #10 tab Allergies Allergy/AdvReac Type Severity Reaction Status Date / Time Penicillins Allergy Unknown Verified 03/14/19 18:03 Review of Systems <LUPE Anne-BC - Last Filed: 04/30/19 22:00> Review of Systems Narrative: GENERAL: Denies chills, fatigue, malaise, fever, sweats. HEENT: Denies sinus pain, ear pain, sore throat, difficulty swallowing, diz ziness. RESPIRATORY: Denies dyspnea, cough, wheezing, hemoptysis, sputum. CARDIOVASCULAR: Denies chest pain, palpitations, orthopnea, edema, GASTROINTESTINAL: Denies nausea, vomiting, abdominal pain, diarrhea, constipation, melena. : Denies dysuria, frequency, incontinence, hematuria, urinary retention. MUSCULOSKELETAL: denies weakness, joint pain, or bony pain SKIN: Denies rash, skin lesions, or other NEUROLOGIC: See HPI PSYCHIATRIC: See HPI 12 point review of systems is negative except for those stated above Patient History <BREA Anne - Last Filed: 04/30/19 22:00> Medical History (Updated 03/15/19 @ 04:29 by Jackie Alcaraz DO) Alcoholism /alcohol abuse (Chronic) Anxiety (Chronic) Surgical History (Updated 03/14/19 @ 17:18 by Cynthia Arce PA-C) History of fusion of spine for scoliosis (Resolved) Social History (Updated 03/14/19 @ 17:18 by Cynthia Arce PA-C) Smoking Status: Current some day smoker substance use type: does not use Smoking Status: Current some day smoker alcohol intake frequency: 3 or more drinks per day Alcohol type: hard liquor Substance Use Type: does not use Exam <BREA Anne - Last Filed: 04/30/19 22:00> Narrative Exam Narrative: GENERAL: This is a well-nourished, well-developed patient, in appears slightly anxious HEAD: Atraumatic. Normocephalic. No temporal or scalp tenderness. EYES: Pupils equal round and reactive. Extraocular motions intact. No scleral icterus. No injection or drainage. ENT: Nose without bleeding, purulent drainage or septal hematoma. Throat without erythema, tonsillar hypertrophy or exudate. Uvula midline. Airway patent. NECK: Trachea midline. No JVD or lymphadenopathy. Supple, nontender, no meningeal signs. CARDIOVASCULAR: Regular rate and rhythm RESPIRATORY: Clear to auscultation. Breath sounds equal bilaterally. No wheezes, rales, or rhonchi. No cough. No increased respiratory effort. No accessory muscle use. GASTROINTESTINAL: Abdomen soft, non-tender, nondistended. No hepato- splenomegaly, or palpable masses. No guarding. Active bowel sounds all 4 quadrants EXTREMITIES: No clubbing, cyanosis, or edema. No joint tenderness, effusion, or edema noted. BACK: Nontender without deformity or crepitance. No flank tenderness. NEURO: AOx3. SKIN: No rash or erythema on visible skin Initial Vital Signs Initial Vital Signs: Vital Signs Temperature 97.3 F L 04/30/19 19:59 Pulse Rate 110 H 04/30/19 19:59 Respiratory Rate 21 04/30/19 19:59 Blood Pressure 157/110 H 04/30/19 19:59 Pulse Oximetry 95 04/30/19 19:59 <Chiquita Vance MD - Last Filed: 05/01/19 04:32> Initial Vital Signs Initial Vital Signs: Vital Signs Temperature 97.3 F L 04/30/19 19:59 Pulse Rate 110 H 04/30/19 19:59 Respiratory Rate 04/30/19 19:59 Blood Pressure 157/110 H 04/30/19 19:59 Pulse Oximetry 95 04/30/19 19:59 Course <BREA Anne - Last Filed: 04/30/19 22:00> Orders Ordered: ED Orders 04/30/19 21:02 Complete Blood Count AUTO DIFF Stat Comprehensive Metabolic Panel Stat Ethanol (ETOH) Stat Hepatic (Liver) Panel Stat Lipase Stat Magnesium Stat 04/30/19 21:20 Urine Drug Screen, Rapid Stat 05/01/19 04:19 Consult to [employer] OPERATOR - Sewing Machine Operator Paper Bags Stat Magnesium Sulfate 2 gm/ Folic Acid 1 mg/ Thiamine HCl 100 mg / Multivitamins 10 ml/ Sodium Chloride 1,015.2 mls @ 125 mls/hr IV NOW ONE Stop: 05/01/19 05:32 Last Admin: 04/30/19 21:54 Dose: 125 mls/hr Documented by: MMCFARL Discontinued Medications Hydroxyzine Pamoate (Vistaril) 50 mg PO NOW ONE Stop: 05/01/19 00:37 Vital Signs Vital signs: Vital Signs - 8 hr 04/30/19 20:37 04/30/19 22:25 04/30/19 22:44 Pulse Rate 100 H 106 H 77 Respiratory Rate 24 22 14 Blood Pressure [Left Arm] 119/78 118/91 H 107/74 Pulse Oximetry 93 99 96 05/01/19 01:04 05/01/19 03:00 05/01/19 04:17 Pulse Rate 98 H 90 83 Respiratory Rate 23 20 22 Blood Pressure [Left Arm] 113/73 126/83 114/77 Pulse Oximetry 96 95 96 <Chiquita Vance MD - Last Filed: 05/01/19 04:32> Orders Ordered: ED Orders 04/30/19 21:02 Complete Blood Count AUTO DIFF Stat Comprehensive Metabolic Panel Stat Ethanol (ETOH) Stat Hepatic (Liver) Panel Stat Lipase Stat Magnesium Stat 04/30/19 21:20 Urine Drug Screen, Rapid Stat 05/01/19 04:19 Consult to [facility] - Sewing Machine Operator Paper Bags Stat Magnesium Sulfate 2 gm/ Folic Acid 1 mg/ Thiamine HCl 100 mg / Multivitamins 10 ml/ Sodium Chloride 1,015.2 mls @ 125 mls/hr IV NOW ONE Stop: 05/01/19 05:32 Last Admin: 04/30/19 21:54 Dose: 125 mls/hr Documented by: MMCFARL Discontinued Medications Hydroxyzine Pamoate (Vistaril) 50 mg PO NOW ONE Stop: 05/01/19 00:37 Vital Signs Vital signs: Vital Signs - 8 hr 04/30/19 20:37 04/30/19 22:25 04/30/19 22:44 Pulse Rate 100 H 106 H 77 Respiratory Rate 24 22 14 Blood Pressure [Left Arm] 119/78 118/91 H 107/74 Pulse Oximetry 93 99 96 05/01/19 01:04 05/01/19 03:00 05/01/19 04:17 Pulse Rate 98 H 90 83 Respiratory Rate 23 20 22 Blood Pressure [Left Arm] 113/73 126/83 114/77 Pulse Oximetry 96 95 96 MDM - Alcohol <BREA Anne - Last Filed: 04/30/19 22:00> Lab Data Result diagrams: 04/30/19 21:02 04/30/19 21:02 Labs: Lab Results 04/30/19 04/30/19 04/30/19 Range/Units 21:02 21:02 21:20 WBC 7.4 (4.5-11.0) X10^3/uL RBC 4.83 (4.0-5.2) X10^6/uL Hgb 15.6 (12.0-16.0) g/dL Hct 44.5 (36-46) % MCV 92.1 (80-100) fL MCH 32.4 (26-34) PG MCHC 35.1 (30-36) % RDW 13.8 (11.6-14.8) % Plt Count 317 (150-400) X10^3/uL Neut % (Auto) 59.0 (50-75) % Lymph % (Auto) 32.4 (25-40) % Dade % (Auto) 7.2 (3-14) % Eos % (Auto) 0.7 L (2-4) % Baso % (Auto) 0.7 (0-2) % Neut # (Auto) 4400 (4897-5224) /uL Lymph # (Auto) 2400 (1178-8850) /uL Dade # (Auto) 500 (0-900) /uL Eos # (Auto) 100 (0-450) /uL Baso # (Auto) 0 (0-100) /uL Sodium 144 (137-145) mmol/L Potassium 4.0 (3.4-5.1) mmol/L Chloride 102 (98-107) mmol/L Carbon Dioxide 29 (22-32) mmol/L BUN 14 (7-17) mg/dL Creatinine 0.70 (0.52-1.04) mg/dL Estimated GFR > 60.0 (>60) mL/min BUN/Creatinine Ratio 20.0 (6-22) Glucose 91 (70-100) mg/dL Calcium 8.7 (8.4-10.2) mg/dL Magnesium 2.0 (1.6-2.3) mg/dL Total Bilirubin 1.0 (0.2-1.3) mg/dL Conjugated Bilirubin 0.0 (0.0-0.3) md/dL Unconjugated Bilirubin 0.9 (0.0-1.1) mg/dL AST 73 H (14-36) IU/L ALT 55 H (<35) IU/L Alkaline Phosphatase 96 (38-126) U/L Total Protein 7.9 (6.3-8.2) g/dL Albumin 4.5 (3.5-5.0) g/dL Globulin 3.4 (1.7-4.1) g/dL Albumin/Globulin Ratio 1.3 (1.0-2.8) Lipase 176 (23-300) U/L U Opiates 300ng/mL cut Negative (Negative) Ur Oxycodone Screen Negative (Negative) Urine Methadone Screen Negative (Negative) Ur Barbiturates Screen Negative (Negative) U Tricyclic Antidepress Negative (Negative) Ur Phencyclidine Scrn Negative (Negative) Ur Amphetamines Screen Negative (Negative) U Methamphetamines Scrn Negative (Negative) Ur MDMA Scrn (Ecstasy) Negative (Negative) U Benzodiazepines Scrn Negative (Negative) Urine Cocaine Screen Negative (Negative) U Marijuana (THC) Screen Negative (Negative) Ethyl Alcohol 415 H* ( - 10) mg/dL Point of Care Testing Test Results Negative Urine Dip Bedside Urine Glucose Negative Bedside Urine Bilirubin - Negative Bedside Urine Ketone - Negative Bedside Urine Occult Blood - Negative Bedside Urine Protein - Negative Bedside Urine Urobilinogen - Negative Bedside Urine Nitrite - Negative Bedside Urine Leukocytes - Negative Esterase MDM Narrative Medical decision making narrative: The patient is a 34-year-old female presenting for chief complaint of wanting detox. She has a history of alcohol ism, denies history of alcohol-related seizures. She denies any thoughts of hurting herself or anybody else. CIWA on arrival is 3 related to anxiety. IV was started, basic [facility] crisis labs were drawn. [facility] crisis states that they would have a bed for her after 8 or 10:00 a.m. tomorrow. Patient's alcohol is 415. I discussed that her alcohol as to be 250 or less to go to [facility] detox. Additionally they will not have any beds into the morning. Patient's lab work has resulted, urine is pending, banana bag is infusing. Patient states understanding of plan of care. Patient signed out to Dr Vance at 21:50 <Chiquita Vance MD - Last Filed: 05/01/19 04:32> Lab Data Labs: Lab Results 04/30/19 04/30/19 04/30/19 Range/Units 21:02 21:02 21:20 WBC 7.4 (4.5-11.0) X10^3/uL RBC 4.83 (4.0-5.2) X10^6/uL Hgb 15.6 (12.0-16.0) g/dL Hct 44.5 (36-46) % MCV 92.1 (80-100) fL MCH 32.4 (26-34) PG MCHC 35.1 (30-36) % RDW 13.8 (11.6-14.8) % Plt Count 317 (150-400) X10^3/uL Neut % (Auto) 59.0 (50-75) % Lymph % (Auto) 32.4 (25-40) % Dade % (Auto) 7.2 (3-14) % Eos % (Auto) 0.7 L (2-4) % Baso % (Auto) 0.7 (0-2) % Neut # (Auto) 4400 (6257-3056) /uL Lymph # (Auto) 2400 (0119-2739) /uL Dade # (Auto) 500 (0-900) /uL Eos # (Auto) 100 (0-450) /uL Baso # (Auto) 0 (0-100) /uL Sodium 144 (137-145) mmol/L Potassium 4.0 (3.4-5.1) mmol/L Chloride 102 (98-107) mmol/L Carbon Dioxide 29 (22-32) mmol/L BUN 14 (7-17) mg/dL Creatinine 0.70 (0.52-1.04) mg/dL Estimated GFR > 60.0 (>60) mL/min BUN/Creatinine Ratio 20.0 (6-22) Glucose 91 (70-100) mg/dL Calcium 8.7 (8.4-10.2) mg/dL Magnesium 2.0 (1.6-2.3) mg/dL Total Bilirubin 1.0 (0.2-1.3) mg/dL Conjugated Bilirubin 0.0 (0.0-0.3) md/dL Unconjugated Bilirubin 0.9 (0.0-1.1) mg/dL AST 73 H (14-36) IU/L ALT 55 H (<35) IU/L Alkaline Phosphatase 96 (38-126) U/L Total Protein 7.9 (6.3-8.2) g/dL Albumin 4.5 (3.5-5.0) g/dL Globulin 3.4 (1.7-4.1) g/dL Albumin/Globulin Ratio 1.3 (1.0-2.8) Lipase 176 (23-300) U/L U Opiates 300ng/mL cut Negative (Negative) Ur Oxycodone Screen Negative (Negative) Urine Methadone Screen Negative (Negative) Ur Barbiturates Screen Negative (Negative) U Tricyclic Antidepress Negative (Negative) Ur Phencyclidine Scrn Negative (Negative) Ur Amphetamines Screen Negative (Negative) U Methamphetamines Scrn Negative (Negative) Ur MDMA Scrn (Ecstasy) Negative (Negative) U Benzodiazepines Scrn Negative (Negative) Urine Cocaine Screen Negative (Negative) U Marijuana (THC) Screen Negative (Negative) Ethyl Alcohol 415 H* ( - 10) mg/dL Point of Care Testing Test Results Negative Urine Dip Bedside Urine Glucose Negative Bedside Urine Bilirubin - Negative Bedside Urine Ketone - Negative Bedside Urine Occult Blood - Negative Bedside Urine Protein - Negative Bedside Urine Urobilinogen - Negative Bedside Urine Nitrite - Negative Bedside Urine Leukocytes - Negative Esterase Discharge Plan Departure Prescriptions: No Action clonidine HCl 0.1 mg tablet 0.1 mg PO DAILY RF: 0 gabapentin 300 mg capsule 300 mg PO TID RF: 0 hydroxyzine HCl 25 mg Tablet 50 mg PO TID PRN (Reason: Anxiety) RF: 0 buspirone 15 mg Tablet 15 mg PO BID PRN (Reason: Anxiety) RF: 0 lorazepam [Ativan] 2 mg tablet See Rx Instructions .ROUTE .COMPLEX PRN (Reason: alcohol withdrawal) Qty: 10 RF: 0 <Chiquita Vance MD - Last Filed: 05/01/19 04:32> Sign Out Provider Sign Out Attestation: Patient was signed out to me by our nurse pr actitioner. Alcohol level at the time was 417. Patient was somewhat tearful in requesting help with detox. Labs were drawn and a relatively unremarkable banana bag was given. If metabolism of her alcohol continues at about 20 mg per hour she will get to completely sober in about 20 hours. Will closely monitor for signs of significant withdrawal and need for benzodiazepine. What she trish will be able to better evaluate the severity of her withdrawal and decide if she needs inpatient treatment or may be able to go [facility]. Patient will be signed out to Dr. Moffett. Social work consult is currently pending. Patient has slept quietly all night
[2019-04-30] MEDS: MAGNESIUM SULFATE 2 GM, FOLIC ACID 1 MG, THIAMINE 100 MG, MULTIVITAMIN 10 ML in SODIUM ... IV (21:54)
[2019-04-30 22:25] VITALS: BP 118/91; PULSE 106; RESP 22; O2SAT 99
[2019-04-30 22:44] VITALS: BP 107/74; PULSE 77; RESP 14; O2SAT 96
[2019-05-01] VITALS (11 sets, daily range): BP systolic 106–151; BP diastolic 67–104; PULSE 80–107; RESP 16–23; O2SAT 95–98
[2019-05-01 07:47] LABS: Ethanol (ETOH) 238 mg/dL
[2019-05-01] MEDS: LORazepam 2 MG/ML INJ 1 MG IV (11:19)
--- NOTE | 2019-05-01 11:32 | ED_ITS ---
HPI - Alcohol General Chief Complaint: Toxicology Problem Stated Complaint: alcohol detox Time Seen by Provider: 04/30/19 20:34 Source: patient Mode of arrival: Ambulatory Limitations: no limitations Related Data Home Medications Medication Instructions Recorded Confirmed clonidine HCl 0.1 mg PO DAILY 03/14/19 05/01/19 gabapentin 300 mg PO TID 03/14/19 05/01/19 buspirone 15 mg PO BID 05/01/19 05/01/19 duloxetine 60 mg PO DAILY 05/01/19 05/01/19 trazodone 50 mg PO DAILY 05/01/19 05/01/19 Allergies Allergy/AdvReac Type Severity Reaction Status Date / Time Penicillins Allergy Unknown Verified 03/14/19 18:03 Patient History Medical History (Updated 05/01/19 @ 11:37 by Joe Moffett MD) Alcoholism /alcohol abuse (Chronic) Anxiety (Chronic) Surgical History (Updated 03/14/19 @ 17:18 by Cynthia Arce PA-C) History of fusion of spine for scoliosis (Resolved) Social History (Updated 03/14/19 @ 17:18 by Cynthia Arce PA-C) Smoking Status: Current some day smoker substance use type: does not use Smoking Status: Current some day smoker alcohol intake frequency: 3 or more drinks per day Alcohol type: hard liquor Substance Use Type: does not use Exam Initial Vital Signs Initial Vital Signs: Vital Signs Temperature 97.3 F L 04/30/19 19:59 Pulse Rate 110 H 04/30/19 19:59 Respiratory Rate 21 04/30/19 19:59 Blood Pressure 157/110 H 04/30/19 19:59 Pulse Oximetry 95 04/30/19 19:59 Course Orders Ordered: ED Orders 05/01/19 04:19 Consult to THERMODYNAMIC PHYSICIST - [employer] Stat 05/01/19 07:30 Ethanol (ETOH) Stat Discontinued Medications Hydroxyzine Pamoate (Vistaril) 50 mg PO NOW ONE Stop: 05/01/19 00:37 Last Admin: 05/01/19 01:00 Dose: Not Given Documented by: [email or web address] Magnesium Sulfate 2 gm/ Folic Acid 1 mg/ Thiamine HCl 100 mg / Multivitamins 10 ml/ Sodium Chloride 1,015.2 mls @ 125 mls/hr IV NOW ONE Stop: 05/01/19 05:32 Last Infusion: 05/01/19 06:02 Dose: 125 mls/hr Documented by: Admin: 04/30/19 21:54 Dose: 125 mls/hr Documented by: SALEEM Lorazepam (Ativan) 1 mg IV NOW ONE Stop: 05/01/19 11:14 Last Admin: 05/01/19 11:19 Dose: 1 mg Documented by: BALDO Vital Signs Vital signs: Vital Signs - 8 hr 05/01/19 04:17 05/01/19 05:30 05/01/19 06:30 Pulse Rate 83 80 83 Respiratory Rate 22 16 19 Blood Pressure [Left Arm] 114/77 106/67 115/82 Pulse Oximetry 96 96 95 05/01/19 07:30 05/01/19 08:20 05/01/19 11:00 Pulse Rate 85 107 H 99 H Respiratory Rate 18 18 Blood Pressure [Left Arm] 125/99 H 133/96 H 146/104 H Pulse Oximetry 95 96 95 MDM - Alcohol Lab Data Result diagrams: 04/30/19 21:02 04/30/19 21:02 Labs: Lab Results 04/30/19 04/30/19 04/30/19 Range/Units 21:02 21:02 21:20 WBC 7.4 (4.5-11.0) X10^3/uL RBC 4.83 (4.0-5.2) X10^6/uL Hgb 15.6 (12.0-16.0) g/dL Hct 44.5 (36-46) % MCV 92.1 (80-100) fL MCH 32.4 (26-34) PG MCHC 35.1 (30-36) % RDW 13.8 (11.6-14.8) % Plt Count 317 (150-400) X10^3/uL Neut % (Auto) 59.0 (50-75) % Lymph % (Auto) 32.4 (25-40) % [place] % (Auto) 7.2 (3-14) % Eos % (Auto) 0.7 L (2-4) % Baso % (Auto) 0.7 (0-2) % Neut # (Auto) 4400 (5715-7538) /uL Lymph # (Auto) 2400 (6651-9260) /uL [place] # (Auto) 500 (0-900) /uL Eos # (Auto) 100 (0-450) /uL Baso # (Auto) 0 (0-100) /uL Sodium 144 (137-145) mmol/L Potassium 4.0 (3.4-5.1) mmol/L Chloride 102 (98-107) mmol/L Carbon Dioxide 29 (22-32) mmol/L BUN 14 (7-17) mg/dL Creatinine 0.70 (0.52-1.04) mg/dL Estimated GFR > 60.0 (>60) mL/min BUN/Creatinine Ratio 20.0 (6-22) Glucose 91 (70-100) mg/dL Calcium 8.7 (8.4-10.2) mg/dL Magnesium 2.0 (1.6-2.3) mg/dL Total Bilirubin 1.0 (0.2-1.3) mg/dL Conjugated Bilirubin 0.0 (0.0-0.3) md/dL Unconjugated Bilirubin 0.9 (0.0-1.1) mg/dL AST 73 H (14-36) IU/L ALT 55 H (<35) IU/L Alkaline Phosphatase 96 (38-126) U/L Total Protein 7.9 (6.3-8.2) g/dL Albumin 4.5 (3.5-5.0) g/dL Globulin 3.4 (1.7-4.1) g/dL Albumin/Globulin Ratio 1.3 (1.0-2.8) Lipase 176 (23-300) U/L U Opiates 300ng/mL cut Negative (Negative) Ur Oxycodone Screen Negative (Negative) Urine Methadone Screen Negative (Negative) Ur Barbiturates Screen Negative (Negative) U Tricyclic Antidepress Negative (Negative) Ur Phencyclidine Scrn Negative (Negative) Ur Amphetamines Screen Negative (Negative) U Methamphetamines Scrn Negative (Negative) Ur MDMA Scrn (Ecstasy) Negative (Negative) U Benzodiazepines Scrn Negative (Negative) Urine Cocaine Screen Negative (Negative) U Marijuana (THC) Screen Negative (Negative) Ethyl Alcohol 415 H* ( - 10) mg/dL 05/01/19 Range/Units 07:30 WBC (4.5-11.0) X10^3/uL RBC (4.0-5.2) X10^6/uL Hgb (12.0-16.0) g/dL Hct (36-46) % MCV (80-100) fL MCH (26-34) PG MCHC (30-36) % RDW (11.6-14.8) % Plt Count (150-400) X10^3/uL Neut % (Auto) (50-75) % Lymph % (Auto) (25-40) % [place] % (Auto) (3-14) % Eos % (Auto) (2-4) % Baso % (Auto) (0-2) % Neut # (Auto) (2087-6547) /uL Lymph # (Auto) (8233-3986) /uL [place] # (Auto) (0-900) /uL Eos # (Auto) (0-450) /uL Baso # (Auto) (0-100) /uL Sodium (137-145) mmol/L Potassium (3.4-5.1) mmol/L Chloride (98-107) mmol/L Carbon Dioxide (22-32) mmol/L BUN (7-17) mg/dL Creatinine (0.52-1.04) mg/dL Estimated GFR (>60) mL/min BUN/Creatinine Ratio (6-22) Glucose (70-100) mg/dL Calcium (8.4-10.2) mg/dL Magnesium (1.6-2.3) mg/dL Total Bilirubin (0.2-1.3) mg/dL Conjugated Bilirubin (0.0-0.3) md/dL Unconjugated Bilirubin (0.0-1.1) mg/dL AST (14-36) IU/L ALT (<35) IU/L Alkaline Phosphatase (38-126) U/L Total Protein (6.3-8.2) g/dL Albumin (3.5-5.0) g/dL Globulin (1.7-4.1) g/dL Albumin/Globulin Ratio (1.0-2.8) Lipase (23-300) U/L U Opiates 300ng/mL cut (Negative) Ur Oxycodone Screen (Negative) Urine Methadone Screen (Negative) Ur Barbiturates Screen (Negative) U Tricyclic Antidepress (Negative) Ur Phencyclidine Scrn (Negative) Ur Amphetamines Screen (Negative) U Methamphetamines Scrn (Negative) Ur MDMA Scrn (Ecstasy) (Negative) U Benzodiazepines Scrn (Negative) Urine Cocaine Screen (Negative) U Marijuana (THC) Screen (Negative) Ethyl Alcohol 238 H ( - 10) mg/dL Point of Care Testing Test Results Negative Urine Dip Bedside Urine Glucose Negative Bedside Urine Bilirubin - Negative Bedside Urine Ketone - Negative Bedside Urine Occult Blood - Negative Bedside Urine Protein - Negative Bedside Urine Urobilinogen - Negative Bedside Urine Nitrite - Negative Bedside Urine Leukocytes - Negative Esterase Discharge Plan Departure Patient Disposition: [facility] Clinical Impression: Alcoholism /alcohol abuse, Anxiety, Alcoholic intoxication Activity Restrictions/Additional Instructions: The patient has agreed to be transferred to [facility] in [facility]. She will be transferred by ambulance. Prescriptions: No Action clonidine HCl 0.1 mg tablet 0.1 mg PO DAILY RF: 0 gabapentin 300 mg capsule 300 mg PO TID RF: 0 trazodone 50 mg tablet 50 mg PO DAILY RF: 0 buspirone 15 mg tablet 15 mg PO BID RF: 0 duloxetine 60 mg capsule,delayed release(DR/EC) 60 mg PO DAILY RF: 0 ED Sign-out Sign Out Provider Sign Out Attestation: [id number] the patient has mild agitation and tremors at this time. She has an IV in place and has been administered an additional 1 mg of Ativan. She has agreed to be admitted at [facility] in [facility]. The patient will be transferred by ambulance. She denies any chest pain cough shortness of breath or abdominal pain at this time. She is not having a headache. Cranial nerves are normal without any focal facial asymmetry. She moves all 4 extremities. Her lungs are clear and symmetrical heart is regular rhythm and rate without murmur abdomen is soft and nontender. At the change of shift to Dr. Reyes provided report. The patient will be transferred to the detox center.
--- NOTE | 2019-05-08 11:26 | CM.SWNOTE ---
Late Entry This EMERGENCY DEPARTMENT DIRECTOR requested to consult and secure detox services for this 34 yo who presented to the ED 04.30.19 wanting to detox from ETOH. EMERGENCY DEPARTMENT DIRECTOR consult placed 05.01.19. This EMERGENCY DEPARTMENT DIRECTOR unable to complete full assessment at bedside d/t other EMERGENCY DEPARTMENT DIRECTOR consult requests placed this day. Marco A, GUSTAVO/SAY agreed to call crisis centers that accept Medicaid, on Ebonie Lees's behalf. [facility] did not have openings and neither did [facility]; Pullman did secure an opening at [facility] in [place] and was going to coordinate transportation on Ebonie's behalf. Inevitably, Ebonie Lees left AMA on 05.01.19 BEBE Singh
== END 2019-05-01 15:04 | disposition left against medical advice (07) ==
PROVIDERS: Nurse Practitioner Family; Emergency Provider Emergency Medicine
DX: F10.929 Alcohol use, unspecified with intoxication, unspecified (principal); F41.9 Anxiety disorder, unspecified
CPT/HCPCS: 36415; 80053; 80076; 80305; 80320; 81003; 81025; 83690; 83735; 85025; 96361; 96374; 99284; J2060; J3475

== ENCOUNTER 2019-05-24 18:22 | Emergency (ER) | payer OTHER, MEDICAID, SELFPAY ==
[2019-05-24 18:28] VITALS: BP 163/110; PULSE 112; RESP 22; TEMP 36.7; O2SAT 95; BMI 31.4
== END 2019-05-24 23:46 | disposition left against medical advice (07) ==
PROVIDERS: Emergency Provider Emergency Medicine
DX: F10.239 Alcohol dependence with withdrawal, unspecified (principal)
CPT/HCPCS: 99281

== ENCOUNTER 2019-05-25 00:12 | Emergency (ER) | payer OTHER, MEDICAID, SELFPAY ==
[2019-05-25] VITALS (8 sets, daily range): BP systolic 120–164; BP diastolic 58–114; PULSE 81–106; RESP 15–20; TEMP 36.6; O2SAT 94–99; BMI 31.4
[2019-05-25 01:56] LABS: Add Manual Diff / Slide Review NO; Basophils Absolute Auto 0 /uL (0-100); Basophils Percent Auto 0.5 % (0-2); Eosinophils Absolute Auto 0 /uL (0-450); Eosinophils Percent Auto 0.4 % (2-4); Hematocrit 38.3 % (36-46); Lymphocytes Absolute Auto 1300 /uL (1100-4500); Lymphocytes Percent Auto 15.6 % (25-40); Mean Corpuscular HGB Conc 33.9 % (30-36); Mean Corpuscular Hemoglobin 32.4 PG (26-34); Mean Corpuscular Volume 95.5 fL (80-100); Monocytes Absolute Auto 500 /uL (0-900); Monocytes Percent Auto 5.8 % (3-14); Neutrophils Absolute Auto 6700 /uL (1500-7000); Neutrophils Percent Auto 77.7 % (50-75); Platelet Count 224 X10^3/uL (150-400); Red Blood Cell Count 4.01 X10^6/uL (4.0-5.2); Red Cell Distribution Width 17.3 % (11.6-14.8); White Blood Cell Count 8.6 X10^3/uL (4.5-11.0)
[2019-05-25 02:04] LABS: Alanine Aminotransferase 156 IU/L (<35); Albumin 4.8 g/dL (3.5-5.0); Albumin Globulin Ratio 1.5 (1.0-2.8); Alkaline Phosphatase 82 U/L (38-126); Aspartate Aminotransferase 268 IU/L (14-36); BUN Creatinine Ratio 18.3 (6-22); Bilirubin Total 2.2 mg/dL (0.2-1.3); Bilirubin Unconjugated 1.9 mg/dL (0.0-1.1); Blood Urea Nitrogen 11 mg/dL (7-17); Carbon Dioxide 22 mmol/L (22-32); Chloride 94 mmol/L (98-107); Estimated Glomerular Filt Rate > 60.0 mL/min (>60); Ethanol (ETOH) 131 mg/dL; Globulin 3.3 g/dL (1.7-4.1); Glucose 72 mg/dL (70-100); HEMOLYSIS < 15 (0-50); Lipase 170 U/L (23-300); Magnesium 1.5 mg/dL (1.6-2.3); Potassium 3.5 mmol/L (3.4-5.1); Sodium 137 mmol/L (137-145); Total Protein 8.1 g/dL (6.3-8.2)
[2019-05-25] MEDS: SODIUM CHLORIDE 0.9% 1,000 ML 1000 ML IV (02:07)
[2019-05-25] MEDS: PHENobarbital 65 MG/ML VIAL 260 MG IV (02:07)
--- NOTE | 2019-05-25 05:34 | ED_ITS ---
HPI - Alcohol <Shady Doe DO - Last Filed: 05/26/19 00:34> General Chief Complaint: Toxicology Problem Stated Complaint: not feeling ok withdrawing from alcohol Time Seen by Provider: 05/25/19 00:38 Source: patient Mode of arrival: Ambulatory Limitations: no limitations History of Present Illness HPI narrative: 34-year-old female with mental health history, closed head injury and heavy alcohol use presents with a chief complaint of agitation, tremors, abdominal pain and nausea. She drinks a significant amount of alcohol daily and last had a drink many hours ago. She has had withdrawals before but never has had seizures. He denies any suicidal or homicidal ideation and wants help with her alcohol abuse and is scared that it will end up killing her MD complaint: alcohol withdrawal and alcohol dependence Last drink: just prior to this admission Chronic alcohol use: Yes Previous visits for alcohol intoxication: Yes Recent trauma: No Associated symptoms: nausea, tremors and abdominal pain Treatments prior to arrival: none Related Data Home Medications Medication Instructions Recorded Confirmed clonidine HCl 0.1 mg PO DAILY 03/14/19 05/01/19 gabapentin 300 mg PO TID 03/14/19 05/01/19 buspirone 15 mg PO BID 05/01/19 05/01/19 duloxetine 60 mg PO DAILY 05/01/19 05/01/19 trazodone 50 mg PO DAILY 05/01/19 05/01/19 Previous Rx's Medication Instructions Recorded lorazepam 1 mg PO TID PRN #19 tab 05/25/19 Allergies Allergy/AdvReac Type Severity Reaction Status Date / Time Penicillins Allergy Unknown Verified 05/24/19 18:32 Review of Systems <DO Abigail Harris Last Filed: 05/26/19 00:34> Constitutional Constitutional: Denies chills, Denies fatigue, Denies fever(s), Denies frequent falls, Denies lethargy and Denies weakness Eyes Eyes: Denies change in vision, Denies eye discharge, Denies irritation and Denies loss of vision ENT Ears, Nose, Mouth, and Throat: Denies change in voice, Denies dizziness, Denies neck pain, Denies sore throat and Denies throat swelling Cardiovascular Cardiovascular: Denies chest pain, Denies irregular heart rhythm, Denies lightheadedness, Denies palpitations, Denies dyspnea, Denies dyspnea on exertion and Denies orthopnea Respiratory Respiratory: Denies cough, Denies dyspnea, Denies dyspnea on exertion and Denies wheezing Gastrointestinal Gastrointestinal: Denies abdominal pain, Denies change in bowel habits, Denies diarrhea, Denies nausea and Denies vomiting Genitourinary Genitourinary: Denies hematuria, Denies flank pain, Denies urinary incontinence and Denies urinary urgency Musculoskeletal Musculoskeletal: Denies back pain, Denies muscle weakness, Denies neck pain, Denies numbness and Denies tingling Integumentary/Breasts Skin/Breast: Denies pruritus, Denies erythema, Denies rash and Denies wounds Neurologic Neurologic: Denies behavioral changes, Denies confusion, Denies dizziness, Denies frequent falls, Denies loss of vision, Denies numbness, Denies tingling and Denies weakness Psychiatric Psychiatric: Denies anxiety, Denies behavioral changes, Denies confusion, Denies depression, Denies homicidal ideation and Denies suicidal ideation Endocrine Endocrine: Denies fatigue, Denies flushing and Denies palpitations Hematologic/Lymphatic Hematologic/Lymphatic: Denies easy bruising Allergic/Immunologic Allergic/Immunologic: Denies urticaria, Denies throat swelling and Denies wheezing Patient History <Shady Doe DO - Last Filed: 05/26/19 00:34> Medical History (Updated 05/25/19 @ 11:38 by Joe Moffett MD) Alcoholism /alcohol abuse (Chronic) Anxiety (Chronic) Surgical History (Updated 03/14/19 @ 17:18 by Cynthia Arce PA-C) History of fusion of spine for scoliosis (Resolved) Social History (Updated 03/14/19 @ 17:18 by Cynthia Arce PA-C) Smoking Status: Current some day smoker substance use type: does not use Smoking Status: Current some day smoker alcohol intake frequency: 3 or more drinks per day Alcohol type: beer and hard liquor Substance Use Type: does not use Exam <Shady Doe DO - Last Filed: 05/26/19 00:34> Narrative Exam Narrative: GENERAL: [] 34 year old patient appears stated age. She is anxious and agitated, tearful and fearful, obviously in distress HEAD: Atraumatic. Normocephalic. EYES: Pupils equal round and reactive. Extraocular motions intact. No scleral icterus. No injection or drainage. ENT: Nose without bleeding, purulent drainage. Throat without erythema, tonsillar hypertrophy or exudate. Airway patent. NECK: Trachea midline. Non tender CARDIOVASCULAR: Tachycardic but regular rhythm without murmurs, gallops, or rubs. RESPIRATORY: Clear to auscultation. Breath sounds equal bilaterally. No wheezes, rales, or rhonchi. GASTROINTESTINAL: Abdomen soft, mild tenderness, nondistended. EXTREMITIES: No edema or joint tenderness. BACK: Nontender without deformity or crepitance. No flank tenderness. NEURO: AOx3. Tremor with arms extended SKIN: No rash or erythema of visible areas Initial Vital Signs Initial Vital Signs: Vital Signs Temperature 97.9 F 05/25/19 00:35 Pulse Rate 106 H 05/25/19 00:35 Respiratory Rate 20 05/25/19 00:35 Blood Pressure 154/114 H 05/25/19 00:35 Pulse Oximetry 99 05/25/19 00:35 <Joe Moffett MD - Last Filed: 05/25/19 23:15> Initial Vital Signs Initial Vital Signs: Vital Signs Temperature 97.9 F 05/25/19 00:35 Pulse Rate 106 H 05/25/19 00:35 Respiratory Rate 20 05/25/19 00:35 Blood Pressure 154/114 H 05/25/19 00:35 Pulse Oximetry 99 05/25/19 00:35 Scores <Shady Doe DO - Last Filed: 05/26/19 00:34> ABCD2 Citation: CIWA performed by nursing (20 on arrival) Course <Shady Doe DO - Last Filed: 05/26/19 00:34> Course Course Narrative: Patient has tremendous improvement after phenobarbital, CIWA greatly improved. Patient wishes to be placed into detox, will wait for [employer] Orders Ordered: Discontinued Medications Sodium Chloride (Normal Saline 0.9%) 1,000 mls @ 1,000 mls/hr IV BOLUS ONE Stop: 05/25/19 01:54 Last Infusion: 05/25/19 07:18 Dose: 0 mls/hr Documented by: Admin: 05/25/19 02:07 Dose: 1,000 mls/hr Documented by: STACEY Lorazepam (Ativan) 1 mg PO NOW ONE Stop: 05/25/19 08:51 Last Admin: 05/25/19 08:58 Dose: 1 mg Documented by: HIEU Phenobarbital (Phenobarbital) 260 mg IV NOW ONE Stop: 05/25/19 00:56 Last Admin: 05/25/19 02:07 Dose: 260 mg Documented by: STACEY Vital Signs Vital signs: Vital Signs - 8 hr 05/25/19 04:00 05/25/19 05:00 05/25/19 05:30 Pulse Rate 82 83 82 Respiratory Rate 18 18 19 Blood Pressure [Left Arm] 120/58 L 152/76 H 137/63 Pulse Oximetry 94 95 94 05/25/19 06:00 05/25/19 08:45 Pulse Rate 89 81 Respiratory Rate 18 16 Blood Pressure [Left Arm] 133/91 H 132/79 Pulse Oximetry 94 99 <Joe Moffett MD - Last Filed: 05/25/19 23:15> Orders Ordered: Discontinued Medications Sodium Chloride (Normal Saline 0.9%) 1,000 mls @ 1,000 mls/hr IV BOLUS ONE Stop: 05/25/19 01:54 Last Infusion: 05/25/19 07:18 Dose: 0 mls/hr Documented by: Admin: 05/25/19 02:07 Dose: 1,000 mls/hr Documented by: STACEY Lorazepam (Ativan) 1 mg PO NOW ONE Stop: 05/25/19 08:51 Last Admin: 05/25/19 08:58 Dose: 1 mg Documented by: HIEU Phenobarbital (Phenobarbital) 260 mg IV NOW ONE Stop: 05/25/19 00:56 Last Admin: 05/25/19 02:07 Dose: 260 mg Documented by: STACEY Vital Signs Vital signs: Vital Signs - 8 hr 05/25/19 04:00 05/25/19 05:00 05/25/19 05:30 Pulse Rate 82 83 82 Respiratory Rate 18 18 19 Blood Pressure [Left Arm] 120/58 L 152/76 H 137/63 Pulse Oximetry 94 95 94 05/25/19 06:00 05/25/19 08:45 Pulse Rate 89 81 Respiratory Rate 18 16 Blood Pressure [Left Arm] 133/91 H 132/79 Pulse Oximetry 94 99 MDM - Alcohol <Shady Doe DO - Last Filed: 05/26/19 00:34> Lab Data Result diagrams: 05/25/19 01:44 05/25/19 01:44 Labs: Lab Results 05/25/19 05/25/19 05/25/19 Range/Units 01:44 01:44 06:05 WBC 8.6 (4.5-11.0) X10^3/uL RBC 4.01 (4.0-5.2) X10^6/uL Hgb 13.0 (12.0-16.0) g/dL Hct 38.3 (36-46) % MCV 95.5 (80-100) fL MCH 32.4 (26-34) PG MCHC 33.9 (30-36) % RDW 17.3 H (11.6-14.8) % Plt Count 224 (150-400) X10^3/uL Neut % (Auto) 77.7 H (50-75) % Lymph % (Auto) 15.6 L (25-40) % Crawford % (Auto) 5.8 (3-14) % Eos % (Auto) 0.4 L (2-4) % Baso % (Auto) 0.5 (0-2) % Neut # (Auto) 6700 (6754-4681) /uL Lymph # (Auto) 1300 (9480-1078) /uL Crawford # (Auto) 500 (0-900) /uL Eos # (Auto) 0 (0-450) /uL Baso # (Auto) 0 (0-100) /uL Sodium 137 (137-145) mmol/L Potassium 3.5 (3.4-5.1) mmol/L Chloride 94 L (98-107) mmol/L Carbon Dioxide 22 (22-32) mmol/L BUN 11 (7-17) mg/dL Creatinine 0.60 (0.52-1.04) mg/dL Estimated GFR > 60.0 (>60) mL/min BUN/Creatinine Ratio 18.3 (6-22) Glucose 72 (70-100) mg/dL Calcium 9.0 (8.4-10.2) mg/dL Magnesium 1.5 L (1.6-2.3) mg/dL Total Bilirubin 2.2 H (0.2-1.3) mg/dL Conjugated Bilirubin 0.0 (0.0-0.3) md/dL Unconjugated Bilirubin 1.9 H (0.0-1.1) mg/dL AST 268 H (14-36) IU/L ALT 156 H (<35) IU/L Alkaline Phosphatase 82 (38-126) U/L Total Protein 8.1 (6.3-8.2) g/dL Albumin 4.8 (3.5-5.0) g/dL Globulin 3.3 (1.7-4.1) g/dL Albumin/Globulin Ratio 1.5 (1.0-2.8) Lipase 170 (23-300) U/L Urine Color Urine Appearance Urine pH (4.5-8.0) Ur Specific [place] (1.000-1.035) Urine Protein (Negative) Urine Glucose (UA) (Negative) g/dL Urine Ketones (NEGATIVE) Urine Occult Blood (Negative) Urine Nitrate (Negative) Urine Bilirubin (NEGATIVE) Urine Urobilinogen (0.2) E.U./dL Ur Leukocyte Esterase (NEGATIVE) Urine RBC (0-5/HPF) Urine WBC (0-5/HPF) Ur Squamous Epith Cells (0-5/HPF) Urine Bacteria (None) Urine Mucus (Negative) Ur Culture Indicated? Micro UA Comment U Opiates 300ng/mL cut Negative (Negative) Ur Oxycodone Screen Negative (Negative) Urine Methadone Screen Negative (Negative) Ur Barbiturates Screen Negative (Negative) U Tricyclic Antidepress Negative (Negative) Ur Phencyclidine Scrn Negative (Negative) Ur Amphetamines Screen Negative (Negative) U Methamphetamines Scrn Negative (Negative) Ur MDMA Scrn (Ecstasy) Negative (Negative) U Benzodiazepines Scrn Negative (Negative) Urine Cocaine Screen Negative (Negative) U Marijuana (THC) Screen Negative (Negative) Ethyl Alcohol 131 H ( - 10) mg/dL 05/25/19 Range/Units 06:05 WBC (4.5-11.0) X10^3/uL RBC (4.0-5.2) X10^6/uL Hgb (12.0-16.0) g/dL Hct (36-46) % MCV (80-100) fL MCH (26-34) PG MCHC (30-36) % RDW (11.6-14.8) % Plt Count (150-400) X10^3/uL Neut % (Auto) (50-75) % Lymph % (Auto) (25-40) % Crawford % (Auto) (3-14) % Eos % (Auto) (2-4) % Baso % (Auto) (0-2) % Neut # (Auto) (0002-0333) /uL Lymph # (Auto) (5917-2467) /uL Crawford # (Auto) (0-900) /uL Eos # (Auto) (0-450) /uL Baso # (Auto) (0-100) /uL Sodium (137-145) mmol/L Potassium (3.4-5.1) mmol/L Chloride (98-107) mmol/L Carbon Dioxide (22-32) mmol/L BUN (7-17) mg/dL Creatinine (0.52-1.04) mg/dL Estimated GFR (>60) mL/min BUN/Creatinine Ratio (6-22) Glucose (70-100) mg/dL Calcium (8.4-10.2) mg/dL Magnesium (1.6-2.3) mg/dL Total Bilirubin (0.2-1.3) mg/dL Conjugated Bilirubin (0.0-0.3) md/dL Unconjugated Bilirubin (0.0-1.1) mg/dL AST (14-36) IU/L ALT (<35) IU/L Alkaline Phosphatase (38-126) U/L Total Protein (6.3-8.2) g/dL Albumin (3.5-5.0) g/dL Globulin (1.7-4.1) g/dL Albumin/Globulin Ratio (1.0-2.8) Lipase (23-300) U/L Urine Color Polo Urine Appearance Clear Urine pH 6.0 (4.5-8.0) Ur Specific [place] 1.025 (1.000-1.035) Urine Protein 2+ H (Negative) Urine Glucose (UA) Negative (Negative) g/dL Urine Ketones 2+ H (NEGATIVE) Urine Occult Blood 3+ H (Negative) Urine Nitrate Negative (Negative) Urine Bilirubin Negative (NEGATIVE) Urine Urobilinogen 0.2 (0.2) E.U./dL Ur Leukocyte Esterase Trace H (NEGATIVE) Urine RBC 0-1/hpf (0-5/HPF) Urine WBC 1-5/hpf (0-5/HPF) Ur Squamous Epith Cells 10-30 /hpf H (0-5/HPF) Urine Bacteria Few (2-10) H (None) Urine Mucus 1+ H (Negative) Ur Culture Indicated? Specimen cultured Micro UA Comment Clue cells U Opiates 300ng/mL cut (Negative) Ur Oxycodone Screen (Negative) Urine Methadone Screen (Negative) Ur Barbiturates Screen (Negative) U Tricyclic Antidepress (Negative) Ur Phencyclidine Scrn (Negative) Ur Amphetamines Screen (Negative) U Methamphetamines Scrn (Negative) Ur MDMA Scrn (Ecstasy) (Negative) U Benzodiazepines Scrn (Negative) Urine Cocaine Screen (Negative) U Marijuana (THC) Screen (Negative) Ethyl Alcohol ( - 10) mg/dL <Joe Moffett MD - Last Filed: 05/25/19 23:15> Lab Data Labs: Lab Results 05/25/19 05/25/19 05/25/19 Range/Units 01:44 01:44 06:05 WBC 8.6 (4.5-11.0) X10^3/uL RBC 4.01 (4.0-5.2) X10^6/uL Hgb 13.0 (12.0-16.0) g/dL Hct 38.3 (36-46) % MCV 95.5 (80-100) fL MCH 32.4 (26-34) PG MCHC 33.9 (30-36) % RDW 17.3 H (11.6-14.8) % Plt Count 224 (150-400) X10^3/uL Neut % (Auto) 77.7 H (50-75) % Lymph % (Auto) 15.6 L (25-40) % Crawford % (Auto) 5.8 (3-14) % Eos % (Auto) 0.4 L (2-4) % Baso % (Auto) 0.5 (0-2) % Neut # (Auto) 6700 (7269-0324) /uL Lymph # (Auto) 1300 (8820-2930) /uL Crawford # (Auto) 500 (0-900) /uL Eos # (Auto) 0 (0-450) /uL Baso # (Auto) 0 (0-100) /uL Sodium 137 (137-145) mmol/L Potassium 3.5 (3.4-5.1) mmol/L Chloride 94 L (98-107) mmol/L Carbon Dioxide 22 (22-32) mmol/L BUN 11 (7-17) mg/dL Creatinine 0.60 (0.52-1.04) mg/dL Estimated GFR > 60.0 (>60) mL/min BUN/Creatinine Ratio 18.3 (6-22) Glucose 72 (70-100) mg/dL Calcium 9.0 (8.4-10.2) mg/dL Magnesium 1.5 L (1.6-2.3) mg/dL Total Bilirubin 2.2 H (0.2-1.3) mg/dL Conjugated Bilirubin 0.0 (0.0-0.3) md/dL Unconjugated Bilirubin 1.9 H (0.0-1.1) mg/dL AST 268 H (14-36) IU/L ALT 156 H (<35) IU/L Alkaline Phosphatase 82 (38-126) U/L Total Protein 8.1 (6.3-8.2) g/dL Albumin 4.8 (3.5-5.0) g/dL Globulin 3.3 (1.7-4.1) g/dL Albumin/Globulin Ratio 1.5 (1.0-2.8) Lipase 170 (23-300) U/L Urine Color Urine Appearance Urine pH (4.5-8.0) Ur Specific [place] (1.000-1.035) Urine Protein (Negative) Urine Glucose (UA) (Negative) g/dL Urine Ketones (NEGATIVE) Urine Occult Blood (Negative) Urine Nitrate (Negative) Urine Bilirubin (NEGATIVE) Urine Urobilinogen (0.2) E.U./dL Ur Leukocyte Esterase (NEGATIVE) Urine RBC (0-5/HPF) Urine WBC (0-5/HPF) Ur Squamous Epith Cells (0-5/HPF) Urine Bacteria (None) Urine Mucus (Negative) Ur Culture Indicated? Micro UA Comment U Opiates 300ng/mL cut Negative (Negative) Ur Oxycodone Screen Negative (Negative) Urine Methadone Screen Negative (Negative) Ur Barbiturates Screen Negative (Negative) U Tricyclic Antidepress Negative (Negative) Ur Phencyclidine Scrn Negative (Negative) Ur Amphetamines Screen Negative (Negative) U Methamphetamines Scrn Negative (Negative) Ur MDMA Scrn (Ecstasy) Negative (Negative) U Benzodiazepines Scrn Negative (Negative) Urine Cocaine Screen Negative (Negative) U Marijuana (THC) Screen Negative (Negative) Ethyl Alcohol 131 H ( - 10) mg/dL 05/25/19 Range/Units 06:05 WBC (4.5-11.0) X10^3/uL RBC (4.0-5.2) X10^6/uL Hgb (12.0-16.0) g/dL Hct (36-46) % MCV (80-100) fL MCH (26-34) PG MCHC (30-36) % RDW (11.6-14.8) % Plt Count (150-400) X10^3/uL Neut % (Auto) (50-75) % Lymph % (Auto) (25-40) % Crawford % (Auto) (3-14) % Eos % (Auto) (2-4) % Baso % (Auto) (0-2) % Neut # (Auto) (4046-5925) /uL Lymph # (Auto) (4550-7648) /uL Crawford # (Auto) (0-900) /uL Eos # (Auto) (0-450) /uL Baso # (Auto) (0-100) /uL Sodium (137-145) mmol/L Potassium (3.4-5.1) mmol/L Chloride (98-107) mmol/L Carbon Dioxide (22-32) mmol/L BUN (7-17) mg/dL Creatinine (0.52-1.04) mg/dL Estimated GFR (>60) mL/min BUN/Creatinine Ratio (6-22) Glucose (70-100) mg/dL Calcium (8.4-10.2) mg/dL Magnesium (1.6-2.3) mg/dL Total Bilirubin (0.2-1.3) mg/dL Conjugated Bilirubin (0.0-0.3) md/dL Unconjugated Bilirubin (0.0-1.1) mg/dL AST (14-36) IU/L ALT (<35) IU/L Alkaline Phosphatase (38-126) U/L Total Protein (6.3-8.2) g/dL Albumin (3.5-5.0) g/dL Globulin (1.7-4.1) g/dL Albumin/Globulin Ratio (1.0-2.8) Lipase (23-300) U/L Urine Color Polo Urine Appearance Clear Urine pH 6.0 (4.5-8.0) Ur Specific [place] 1.025 (1.000-1.035) Urine Protein 2+ H (Negative) Urine Glucose (UA) Negative (Negative) g/dL Urine Ketones 2+ H (NEGATIVE) Urine Occult Blood 3+ H (Negative) Urine Nitrate Negative (Negative) Urine Bilirubin Negative (NEGATIVE) Urine Urobilinogen 0.2 (0.2) E.U./dL Ur Leukocyte Esterase Trace H (NEGATIVE) Urine RBC 0-1/hpf (0-5/HPF) Urine WBC 1-5/hpf (0-5/HPF) Ur Squamous Epith Cells 10-30 /hpf H (0-5/HPF) Urine Bacteria Few (2-10) H (None) Urine Mucus 1+ H (Negative) Ur Culture Indicated? Specimen cultured Micro UA Comment Clue cells U Opiates 300ng/mL cut (Negative) Ur Oxycodone Screen (Negative) Urine Methadone Screen (Negative) Ur Barbiturates Screen (Negative) U Tricyclic Antidepress (Negative) Ur Phencyclidine Scrn (Negative) Ur Amphetamines Screen (Negative) U Methamphetamines Scrn (Negative) Ur MDMA Scrn (Ecstasy) (Negative) U Benzodiazepines Scrn (Negative) Urine Cocaine Screen (Negative) U Marijuana (THC) Screen (Negative) Ethyl Alcohol ( - 10) mg/dL [facility] Narrative Medical decision making narrative: [id number] the patient has been accepted and will be transferred to [facility]. A prescription for Ativan taper was written for the patient. The patient had stable. Discharge Plan Departure Patient Disposition: Home Clinical Impression: Admitted to alcohol detoxification center, Alcoholism /alcohol abuse Discharge Date/Time: 05/25/19 12:32 Instructions: DI for Alcohol Abuse Activity Restrictions/Additional Instructions: Go directly to [facility] as arranged Prescriptions: New lorazepam 1 mg tablet 1 mg PO TID PRN (Reason: alcohol withdrawal) Qty: 19 RF: 0 No Action clonidine HCl 0.1 mg tablet 0.1 mg PO DAILY RF: 0 gabapentin 300 mg capsule 300 mg PO TID RF: 0 trazodone 50 mg tablet 50 mg PO DAILY RF: 0 buspirone 15 mg tablet 15 mg PO BID RF: 0 duloxetine 60 mg capsule,delayed release(DR/EC) 60 mg PO DAILY RF: 0
[2019-05-25 06:20] LABS: UR Morphine/Opiate cutoff 300 Negative (Negative); Ur Creatinine 50 (Normal); Urine Amphetamines Negative (Negative); Urine Barbiturates Negative (Negative); Urine Benzodiazepines Negative (Negative); Urine Cocaine Negative (Negative); Urine MDMA Negative (Negative); Urine Methadone Negative (Negative); Urine Methamphetamines Negative (Negative); Urine Oxycodone Negative (Negative); Urine Phencyclidine Negative (Negative); Urine Tetrahydrocannabinol Negative (Negative); Urine Tricyclic Antidepressant Negative (Negative); Urine pH 5 (Normal)
[2019-05-25 06:28] LABS: Appearance Urine UA CLEAR; Bilirubin Urine UA NEGATIVE (NEGATIVE); Glucose Urine UA NEGATIVE (Negative); Ketones Urine UA 2+ (NEGATIVE); Leukocyte Esterase Urine UA TRACE (NEGATIVE); Nitrite Urine UA NEGATIVE (Negative); Occult Blood Urine UA 3+ (Negative); Protein Urine UA 2+ (Negative); Specific Gravity Urine UA 1.025 (1.000-1.035); Urobilinogen Urine UA 0.2 E.U./dL (0.2)
[2019-05-25 06:38] LABS: Color Urine UA Orange
[2019-05-25 06:58] LABS: Bacteria Urine Few (2-10); Culture Indicated Urine Specimen Cultured; Mucus Urine 1+ (Negative); RBC Urine 0-1/HPF (0-5/HPF); Squamous Epithelial Cell Urine 10-30 /HPF (0-5/HPF); Urine Comments CLUE CELLS; WBC Urine 1-5/HPF (0-5/HPF)
--- NOTE | 2019-05-25 08:33 | PC.NURSE ---
pt seeking in patient detox and treatment. states a few months ago was admitted into a place around here. pt ambulated to bathroom without assistance, tampon provided at pt's request.
--- NOTE | 2019-05-25 08:40 | PC.NURSE ---
patient took her home medications Duloxetine 60mg Gabapentin 300mg Buspirone 15mg Clonidine 0.1mg
[2019-05-25] MEDS: LORazepam 0.5 MG TABLET 1 MG PO (08:58)
== END 2019-05-25 12:32 | disposition home or self-care (01) ==
PROVIDERS: Emergency Medicine; Emergency Provider Emergency Medicine
DX: F10.20 Alcohol dependence, uncomplicated (principal)
CPT/HCPCS: 36415; 80053; 80076; 80305; 80320; 81001; 83690; 83735; 85025; 87086; 96361; 96374; 99284; J2560

== ENCOUNTER 2019-07-01 11:54 | Emergency (ER) | payer OTHER, MEDICAID, SELFPAY ==
[2019-07-01 12:00] VITALS: BP 146/96; PULSE 109; RESP 14; TEMP 36.7; O2SAT 97; BMI 30.4
[2019-07-01 13:47] VITALS: BP 120/79; PULSE 99; RESP 16; TEMP 36.2; O2SAT 94
--- NOTE | 2019-07-01 23:43 | ED.LOWEXIN ---
HPI - Extremity Injury (Lower) <KELTON Barrientos - Last Filed: 07/01/19 23:59> General Chief Complaint: Extremity Injury, Lower Stated Complaint: Wants Screened For Covid and Upper Resp Time Seen by Provider: 07/01/19 11:56 Source: patient Mode of arrival: Ambulatory Limitations: no limitations History of Present Illness HPI Narrative: This is a 34-year-old female who presents to ED after she was dropped off by her boyfriend with request of Covid-19 test. Patient reports she was requested this test to be done before she checks in for rehab at [facility] for alcohol abuse. Patient denies recent cough, fever, difficulty breathing, short of breath, known exposure to persons with Covid-19, recent foreign travel and states I am fine and she does not know why this needs to be done since she does not have symptoms. She reports last detox was about 4 months ago at the same location. Patient reports last drink was 5:00 a.m. this morning she and she had 30 pack of beer and 1 pint size Vodka which is her normal intake of alcohol. Patient denies previous DT, seizures, hallucinations, feeling of anxiety. Patient reports LMP as 2 days ago. Related Data Home Medications Medication Instructions Recorded Confirmed clonidine HCl 0.1 mg PO DAILY 03/14/19 05/01/19 gabapentin 300 mg PO TID 03/14/19 05/01/19 buspirone 15 mg PO BID 05/01/19 05/01/19 duloxetine 60 mg PO DAILY 05/01/19 05/01/19 trazodone 50 mg PO DAILY 05/01/19 05/01/19 Previous Rx's Medication Instructions Recorded lorazepam 1 mg PO TID PRN #19 tab 05/25/19 Allergies Allergy/AdvReac Type Severity Reaction Status Date / Time Penicillins Allergy Unknown Verified 07/01/19 12:10 Review of Systems <KELTON Barrientos - Last Filed: 07/01/19 23:59> Review of Systems Narrative: General: Denies fever, chills, fatigue, malaise, sweats. HEENT: Denies sinus pain, ear pain, sore throat, difficulty swallowing, dizziness. Respiratory: Denies dyspnea, cough, wheezing, hemoptysis, sputum. Cardiovascular: Denies chest pain, palpitations, orthopnea, edema. Gastrointestinal: Denies nausea, vomiting, abdominal pain, diarrhea, constipation, melena. : Denies dysuria, frequency, incontinence, hematuria, urinary retention. Musculoskeletal: Denies weakness, joint pain or bony pain. Skin: Denies rash, skin lesions, or other. Neurologic: Denies weakness, headache, numbness, change in speech, confusion, seizures, incoordination. Psychiatric: No concerning psychosocial issues. 12-point review of systems is negative except for those stated above. Patient History <KELTON Barrientos - Last Filed: 07/01/19 23:59> Medical History (Updated 07/01/19 @ 12:49 by KELTON Barrientos) Alcoholism /alcohol abuse (Chronic) Anxiety (Chronic) Surgical History (Updated 03/14/19 @ 17:18 by Cynthia Arce PA-C) History of fusion of spine for scoliosis (Resolved) Social History (Updated 07/01/19 @ 23:48 by KELTON Barrientos) Smoking Status: Current some day smoker substance use type: does not use Smoking Status: Current some day smoker Alcohol type: beer, hard liquor and other (Heavy daily use) Substance Use Type: does not use Exam <KELTON Barrientos - Last Filed: 07/01/19 23:59> Narrative Exam Narrative: GEN: Alert, oriented x 3, well appearing and nourished, and in no acute distress. Head: Normal cephalic, atraumatic. No scalp or temporal tenderness, palpable mass or rash. EYES: Pupils are equal, round, and reactive to light and accommodation. Extraocular muscles are intact bilaterally. There is no subconjunctival hemorrhage, exudate and sclera non-icteric. ENT: Bilateral auditory canals and tympanic membranes clear. Hearing grossly intact. Nose without bleeding, purulent discharge or deviation. Facial sinuses nontender to palpate. Mucous membrane moist, no mucosal lesion. Throat without erythema, tonsillar hypertrophy or exudate. Uvula in midline, airway patent. Neck: Trachea in midline. No JVD, non-tender without lymphadenopathy. No masses or thyroid megaly. Supple, non-tender and no meningeal signs. CARDIAC: Normal regular rate and rhythm without murmurs, gallops, or rubs. No chest wall tenderness. No peripheral edema, cyanosis or pallor. Capillary refill is less than 2 seconds. RESPIRATORY: Lungs are clear to auscultate bilaterally. No cough, wheezes, rales, or rhonchi. No stridor, respiratory distress, increase work of breathing, or accessary muscle used. ABD: Abdomen soft, nontender and non-distended. No guarding or rebound tenderness to palpate. Bowel sounds are normal in all 4 quadrants. There is no palpable masses or organomegaly. EXT: Full painless ROM of all extremities with no loss of sensation, strength, effusion or edema. SKIN: Warm, dry, normal color for patient. No erythema, lesions or rash over visible areas. BACK: Nontender without deformity or crepitance. No flank tenderness. NEUROLOGICAL: Alert and oriented to place, time and person. Sensation and motor function intact bilaterally. No facial droops, dysphasia. PSYCHIATRIC: No hallucinations, abnormal affect or abnormal behaviors during the examination. Patient is not suicidal or homicidal. Initial Vital Signs Initial Vital Signs: Vital Signs Temperature 98.1 F 07/01/19 12:00 Pulse Rate 109 H 07/01/19 12:00 Respiratory Rate 14 07/01/19 12:00 Blood Pressure 146/96 H 07/01/19 12:00 Pulse Oximetry 97 07/01/19 12:00 <Cirilo Osuna DO - Last Filed: 07/02/19 07:00> Initial Vital Signs Initial Vital Signs: Vital Signs Temperature 98.1 F 07/01/19 12:00 Pulse Rate 109 H 07/01/19 12:00 Respiratory Rate 14 07/01/19 12:00 Blood Pressure 146/96 H 07/01/19 12:00 Pulse Oximetry 97 07/01/19 12:00 Scores <KELTON Barrientos - Last Filed: 07/01/19 23:59> GCS Oscar coma scale eye opening: Spontaneous Thaxton coma scale verbal response: Orientated Thaxton coma scale motor response: Obey commands Oscar coma scale total score: 15 MDM - Extremity Injury (Lower) <KELTON Barrientos - Last Filed: 07/01/19 23:59> Differential Diagnosis Differential diagnosis: Likely other (ETOH abuse, encounter for evaluation for respiratory illness) Medical Records Attestation: I reviewed the patient's medical records. [facility] Narrative Medical decision making narrative: This is a 34 year female presents to ED in request of Covid 10 virus check so that she can check into [facility] rehab. The patient denies your respiratory illness symptoms, fever, cough, short of breath, in contact with person who has positive Covid virus. I made phone call to [facility] at [phone] to inquire about this request/test for the patient to check into Rehab and informed that patient is asymptomatic and does not require testing at this time and the test result will not be back in 3-5 days. The contact center analyst at the desk for [facility] requested information to be faxed and I informed her that patient will bring discharge instruction explaining this. I inquired about further testing or physical exam clearance are required before the patient checking into rehab and was told no further testing is needed at this time. I spoke with patient that her physical exam is not consistent with Covid-19 and she is okay to go to rehab from here and informed this to patient's significant other over speaker phone as well. Return precautions were discussed with the patient and patient verbalized understanding and in agreement with the treatment plan. Addendum: Patient called several hours after to request fax information from today's visit to [facility] for her to be accepted. I informed patient that I already spoke with the rehab personnel over the phone and provided patient's name. [facility] reports [facility] is not aware of this. I called [facility] again to inquire about patient's status and requirements. I was told that patient indeed needs medical clearance including lab tests which was different from previous phone call inquiries. Patient was called back again to inform that she is welcome to return to ED to have these tests done before checking in to schedule rehab. Patient verbalized understanding. Discharge Plan Departure Patient Disposition: Home Clinical Impression: Alcoholism /alcohol abuse Discharge Date/Time: 07/01/19 13:47 Instructions: DI for Alcohol Abuse Activity Restrictions/Additional Instructions: You have been diagnosed with [alcohol abuse and you could proceed checking into [facility]. You do not exhibit respiratory/COVID-19 symptoms such as cough, short of breath, fever, recent travel, or in contact with a person who has cold it virus]. What to do: *Take your medications as directed. *Follow up with your primary care provider in 2-3 days, call for an appointment. Please have your significant other take you directly to [facility] after discharge from here. I spoke with the point of contact center analyst over the phone and no further exam or testing needs to be done at this time. Let them know you were seen in the ED and that we asked you to be seen in follow up. *Return to ED if you have any new, worsening, or concerning symptoms, such as [chest pain, breathing difficulty, unable to tolerate fluids, fainting likes symptoms or any acute concerns]. Prescriptions: No Action clonidine HCl 0.1 mg tablet 0.1 mg PO DAILY RF: 0 gabapentin 300 mg capsule 300 mg PO TID RF: 0 trazodone 50 mg tablet 50 mg PO DAILY RF: 0 buspirone 15 mg tablet 15 mg PO BID RF: 0 duloxetine 60 mg capsule,delayed release(DR/EC) 60 mg PO DAILY RF: 0 lorazepam 1 mg tablet 1 mg PO TID PRN (Reason: alcohol withdrawal) Qty: 19 RF: 0 Referrals: Vince Blanco MD [Primary Care Provider] - <Cirilo Osuna DO - Last Filed: 07/02/19 07:00> [facility] Dr Osuna Co-Sign Statement: I was available for consultation during this patient's emergency department visit. This chart is signed by myself for administrative purposes only. I did not have direct contact with this patient during this visit. They were seen independently by the APC.
== END 2019-07-01 13:47 | disposition home or self-care (01) ==
PROVIDERS: Emergency Provider Nurse Practitioner Family; PCP Family Medicine
DX: F10.10 Alcohol abuse, uncomplicated (principal)
CPT/HCPCS: 99281